=== PATIENT | male | born 1965 | race American Indian/Alaskan Native ===

== ENCOUNTER 2016-12-22 12:44 | Outpatient (CLI) | payer MEDICARE ==
--- NOTE | 2016-12-22 14:14 | Cat Scan Report ---
CT of the abdomen and pelvis without contrast. History: Urinary incontinence. Findings: The liver, spleen, and pancreas are normal. The gallbladder is unremarkable. There is a round hypodense mass in the upper pole of the right kidney measuring 2.8 cm in diameter with CT numbers consistent with water density. There are no other renal abnormalities. There is no hydronephrosis. The adrenal glands appear normal. There are no pelvic masses or abnormal fluid collections. A 4 mm calcification adjacent to the posterior left lateral aspect of the urinary bladder appears to be vascular in origin with no evidence of ureteral dilatation. No significant bony findings are seen. The prostate gland is mildly prominent. Impression: #1. Right renal cyst. 2. Left lower pelvis soft tissue calcification appears to be outside the ureter. 3. Mild prostatic enlargement.
== END 2016-12-22 12:45 | disposition home or self-care (01) ==
LOC: CT 12:44
PROVIDERS: ATTEND Urology
DX: N28.1 Cyst of kidney, acquired (principal); N40.1 Benign prostatic hyperplasia with lower urinary tract symptoms; N28.89 Other specified disorders of kidney and ureter; N39.498 Other specified urinary incontinence
CPT/HCPCS: 74176

== ENCOUNTER 2019-02-06 09:05 | Emergency (ER) | payer MEDICARE ==
--- NOTE | 2019-02-06 09:46 | Cat Scan Report ---
CT HEAD WITHOUT CONTRAST: HISTORY: Altered mental status. TECHNIQUE: Sequential 2.5mm CT images. COMPARISON: none. FINDINGS: Cerebral Parenchyma: A large chronic infarct measuring up to 10.1 x 3.7 cm in axial dimensions is identified in the right MCA distribution. The infarct in involves the right frontal lobe, anterior right parietal lobe and anterior temporal lobe. The remaining brain parenchyma is within normal limits for this persons age. No acute ischemic insult is appreciated on noncontrast CT. Cerebellum: Within normal limits. Brainstem: Within normal limits. Ventricles: Normal. Sella: Normal. Extra-axial spaces: Normal. Basal Cisterns: Normal. Intracranial Hemorrhage: None. Midline Shift: None. Calvarium: Normal. Sinuses: Normal. Mastoid Air Cells: Normal. Visualized Orbits: Normal. IMPRESSION: Chronic right MCA infarct. No acute intracranial process is identified.
[2019-02-06 10:00] LABS: Basophils % (Auto) 0.3 % (0.0-1.8); Eosinophils % (Auto) 0.1 % (0.0-4.3); Hematocrit 43.6 % (35.5-45.6); Hemoglobin 14.6 gm/dl (11.8-15.2); Lymphocytes # (Auto) 2.5 K/mm3 (1.2-5.4); Lymphocytes % (Auto) 22.8 % (13.4-35.0); Mean Corpuscular HGB Conc 33 % (32-34); Mean Corpuscular Volume 92 fl (84-94); Monocytes # (Auto) 0.8 K/mm3 (0.0-0.8); Monocytes % (Auto) 7.1 % (0.0-7.3); Platelet Count 145 K/mm3 (140-440); Red Blood Count 4.72 M/mm3 (3.65-5.03)
[2019-02-06 10:10] LABS: INR 1.28 (0.87-1.13)
[2019-02-06 10:11] LABS: Partial Thromboplastin Time 29.8 Sec. (24.2-36.6)
[2019-02-06 10:23] LABS: Thrombin Time 23.2 Sec. (15.1-19.6)
[2019-02-06 10:29] LABS: Creatine Kinase MB 2.8 ng/mL (0.0-4.0)
[2019-02-06 10:31] LABS: Alanine Aminotransferase 15 units/L (7-56); Albumin 3.8 g/dL (3.9-5); BUN/Creatinine Ratio 17; Blood Urea Nitrogen 12 mg/dL (9-20); Calcium 8.6 mg/dL (8.4-10.2); Hemolysis Index 15
[2019-02-06 10:32] LABS: Bilirubin,Direct < 0.2 mg/dL (0-0.2)
--- NOTE | 2019-02-06 10:42 | XRay Report ---
AP CHEST: HISTORY: Hypertension AP view of the chest demonstrates a normal mediastinal and cardiac contour with clear lungs and normal bony and soft tissue structures. IMPRESSION: Unremarkable AP chest.
[2019-02-06 11:10] LABS: RBC,Urine < 1.0 /HPF (0.0-6.0)
[2019-02-06 11:12] LABS: Bilirubin,Urine NEG (Negative); Blood,Urine MOD (Negative); Color,Urine Straw (Yellow); Protein,Urine <15 mg/dL mg/dL (Negative); Urobilinogen,Urine < 2.0 mg/dL (<2.0)
[2019-02-06 11:22] LABS: Amphetamine Screen,Urine PRESUMPTIVE NEGATIVE; Benzodiazepines Screen,Urine PRESUMPTIVE NEGATIVE; Cannabinoid Screen,Urine PRESUMPTIVE NEGATIVE; Cocaine Screen,Urine PRESUMPTIVE NEGATIVE; Methadone Screen,Urine PRESUMPTIVE NEGATIVE; Opiate Screen,Urine PRESUMPTIVE NEGATIVE
--- NOTE | 2019-02-06 12:44 | Emergency Department Report ---
ED Altered Mental Status HPI - General Chief Complaint: Altered Mental Status Stated Complaint: NEURO ISSUES Time Seen by Provider: 02/06/19 09:27 Source: patient, EMS Mode of arrival: Stretcher Limitations: Physical Limitation - History of Present Illness Initial Comments: This is a 53 year old man who presents with 2 older lady said she'll kindly both state that they are his mother. They tell me that he had some abnormal behavior this morning. The behavior consisted of walking around in circles at home. The patient is status post previous CVA with left hemiparesis. He does walk with assistive devices including a leg brace and a cane. In addition to being status post an MCA stroke about a year ago, the patient is prescribed Seroquel. The family do not admit any specific psychiatric diagnosis. However they do state that he was placed on this medicine for his "behavior" in the past. The patient has had no history of abdullahi hallucinosis. They deny any of that today or paranoid ideation. He did not wander out of his home. MD Complaint: altered mental status -: hour(s) Consistency of Symptoms: waxing and waning (basically resolved after the episode this morning) Context: other (prior CVA) Associated Symptoms: denies other symptoms - Related Data Previous Rx's Medication Instructions Recorded Last Taken Type Aspirin [Aspirin BABY CHEW TAB] 81 mg PO QDAY #30 tab.chew 06/10/15 Unknown Rx DULoxetine [Cymbalta] 60 mg PO QDAY #30 capsule 06/10/15 Unknown Rx Metoprolol [Lopressor TAB] 25 mg PO BID@0800,2200 #60 tablet 06/10/15 Unknown Rx Nicotine [Habitrol] 14 mg TD QDAY #30 patch 06/10/15 Unknown Rx levETIRAcetam [Keppra TAB] 500 mg PO BID@0800,2200 #60 tablet 06/10/15 Unknown Rx traZODone [Desyrel] 25 mg PO QHS PRN #30 tablet 06/10/15 Unknown Rx Allergies Allergy/AdvReac Type Severity Reaction Status Date / Time No Known Allergies Allergy Verified 04/26/15 21:27 ED Review of Systems ROS: Stated complaint: NEURO ISSUES Other details as noted in HPI Constitutional: denies: chills, fever Eyes: denies: eye pain, eye discharge, vision change ENT: denies: ear pain, throat pain Respiratory: denies: cough, shortness of breath, wheezing Cardiovascular: denies: chest pain, palpitations Endocrine: no symptoms reported Gastrointestinal: denies: abdominal pain, nausea, diarrhea Genitourinary: denies: urgency, dysuria Musculoskeletal: denies: back pain, joint swelling, arthralgia Skin: denies: rash, lesions Neurological: confusion (perhaps but appears to be behavioral disorder), abnorm al gait (no change from prior). denies: headache, weakness, numbness, paresthesias Psychiatric: as per HPI. denies: anxiety, depression Hematological/Lymphatic: denies: easy bleeding, easy bruising ED Past Medical Hx - Past Medical History Previous Medical History?: Yes Hx Hypertension: Yes Hx CVA: Yes (residual left sided deficits) Hx Congestive Heart Failure: No Hx Diabetes: Yes Hx Deep Vein Thrombosis: No Hx Seizures: Yes Hx Kidney Stones: Yes Hx Asthma: Yes Hx COPD: No Hx Tuberculosis: No Hx HIV: No - Surgical History Hx Pacemaker: No Hx Internal Defibrillator: No - Social History Smoking Status: Current Some Day Smoker Substance Use Type: Alcohol - Medications Home Medications: Home Medications Medication Instructions Recorded Confirmed Last Taken Type Aspirin [Aspirin BABY CHEW TAB] 81 mg PO QDAY #30 tab.chew 06/10/15 Unknown Rx DULoxetine [Cymbalta] 60 mg PO QDAY #30 capsule 06/10/15 Unknown Rx Metoprolol [Lopressor TAB] 25 mg PO BID@0800,2200 #60 tablet 06/10/15 Unknown Rx Nicotine [Habitrol] 14 mg TD QDAY #30 patch 06/10/15 Unknown Rx levETIRAcetam [Keppra TAB] 500 mg PO BID@0800,2200 #60 tablet 06/10/15 Unknown Rx traZODone [Desyrel] 25 mg PO QHS PRN #30 tablet 06/10/15 Unknown Rx ED Physical Exam - General Limitations: Physical Limitation General appearance: alert, in no apparent distress - Head Head exam: Present: atraumatic, normocephalic - Eye Eye exam: Present: normal appearance. Absent: scleral icterus - ENT ENT exam: Present: mucous membranes moist - Neck Neck exam: Present: normal inspection. Absent: tenderness, meningismus - Respiratory Respiratory exam: Present: normal lung sounds bilaterally. Absent: respiratory distress - Cardiovascular Cardiovascular Exam: Present: regular rate, normal rhythm. Absent: systolic murmur, diastolic murmur, rubs, gallop - GI/Abdominal GI/Abdominal exam: Present: soft, normal bowel sounds. Absent: distended, tenderness, guarding, rebound, rigid - Rectal Rectal exam: Present: deferred - Extremities Exam Extremities exam: Present: other (contraction left upper extremity) - Back Exam Back exam: Present: normal inspection - Neurological Exam Neurological exam: Present: alert, oriented X3, CN II-XII intact (perhaps trace left facial paresis), motor sensory deficit (left hemiparesthesias) - Psychiatric Psychiatric exam: Present: normal affect, normal mood - Skin Skin exam: Present: warm, dry, intact, normal color. Absent: rash - Assessment Assessment Interval: Baseline - Level of Consciousness 1a. Level of Consciousness: alert/keenly responsive - LOC Questions 1b. LOC Questions: answers both correctly - LOC Command 1c. LOC Commands: performs tasks correctly - Best Gaze 2. Best Gaze: normal - Visual 3. Visual: no visual loss - Facial Palsy 4. Facial Palsy: minor paralysis (Plus or minus) - Motor Arm 5a. Motor Arm Left: no gravity effort 5b. Motor Arm Right: no drift - Motor Leg 6a. Motor Leg Left: drift 6b. Motor Leg Right: no drift - Limb Ataxia 7. Limb Ataxia: absent - Sensory 8. Sensory: normal - Best Language 9. Best Language: no aphasia - Dysarthria 10. Dysarthria: mild/moderate dysarthria (Very slight) - Extinction and Inattention 11. Extinction/Inattention: no abnormality - Scoring Total Score: 6 Stroke Severity: Moderate Stroke ED Course Vital Signs 02/06/19 02/06/19 02/06/19 09:16 10:30 12:00 Temperature 98 F 98.5 F Pulse Rate 64 66 60 Respiratory 16 16 16 Rate Blood Pressure 103/69 Blood Pressure 102/78 [Right] O2 Sat by Pulse 96 100 100 Oximetry - Reevaluation(s) Reevaluation #1: The patient has not changed from his neurological baseline. He is not altered at this time. He states he is hungry and will be fed. I don't find any indication for admission to the hospital. 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 He will be referred to a neurologist. He may benefit from psychiatric evaluation as well. He is appropriate for outpatient disposition. 02/06/19 13:23 - Lab Data Result diagrams: 02/06/19 09:43 02/06/19 09:43 Lab Results 02/06/19 02/06/19 02/06/19 Range/Units 09:16 09:43 09:43 WBC 10.7 (4.5-11.0) K/mm3 RBC 4.72 (3.65-5.03) M/mm3 Hgb 14.6 (11.8-15.2) gm/dl Hct 43.6 (35.5-45.6) % MCV 92 (84-94) fl MCH 31 (28-32) pg MCHC 33 (32-34) % RDW 14.0 (13.2-15.2) % Plt Count 145 (140-440) K/mm3 Lymph % (Auto) 22.8 (13.4-35.0) % [place] % (Auto) 7.1 (0.0-7.3) % Eos % (Auto) 0.1 (0.0-4.3) % Baso % (Auto) 0.3 (0.0-1.8) % Lymph # 2.5 (1.2-5.4) K/mm3 [place] # 0.8 (0.0-0.8) K/mm3 Eos # 0.0 (0.0-0.4) K/mm3 Baso # 0.0 (0.0-0.1) K/mm3 Seg Neutrophils % 69.7 (40.0-70.0) % Seg Neutrophils # 7.5 (1.8-7.7) K/mm3 PT 16.8 H (12.2-14.9) Sec. INR 1.28 H (0.87-1.13) APTT 29.8 (24.2-36.6) Sec. Thrombin Time 23.2 H (15.1-19.6) Sec. Sodium (137-145) mmol/L Potassium (3.6-5.0) mmol/L Chloride (98-107) mmol/L Carbon Dioxide (22-30) mmol/L Anion Gap mmol/L BUN (9-20) mg/dL Creatinine (0.8-1.5) mg/dL Estimated GFR ml/min BUN/Creatinine Ratio % Glucose (75-100) mg/dL POC Glucose 100 (70-105) Calcium (8.4-10.2) mg/dL Total Bilirubin (0.1-1.2) mg/dL Direct Bilirubin (0-0.2) mg/dL Indirect Bilirubin mg/dL AST (5-40) units/L ALT (7-56) units/L Alkaline Phosphatase (35-129) units/L Total Creatine Kinase (55-170) units/L CK-MB (CK-2) (0.0-4.0) ng/mL CK-MB (CK-2) Rel Index (0-4) Troponin T (0.00-0.029) ng/mL NT-Pro-B Natriuret Pep (0-900) pg/mL Total Protein (6.3-8.2) g/dL Albumin (3.9-5) g/dL Albumin/Globulin Ratio % Urine Color (Yellow) Urine Turbidity (Clear) Urine pH (5.0-7.0) Ur Specific [place] (1.003-1.030) Urine Protein (Negative) mg/dL Urine Glucose (UA) (Negative) mg/dL Urine Ketones (Negative) mg/dL Urine Blood (Negative) Urine Nitrite (Negative) Ur Reducing Substances Urine Bilirubin (Negative) Urine Ictotest Urine Urobilinogen (<2.0) mg/dL Ur Leukocyte Esterase (Negative) Urine WBC (Auto) (0.0-6.0) /HPF Urine RBC (Auto) (0.0-6.0) /HPF Urine Opiates Screen Urine Methadone Screen Ur Barbiturates Screen Ur Phencyclidine Scrn Ur Amphetamines Screen U Benzodiazepines Scrn Urine Cocaine Screen U Marijuana (THC) Screen Drugs of Abuse Note Plasma/Serum Alcohol (0-0.07) % 02/06/19 02/06/19 02/06/19 Range/Units 09:43 09:43 10:22 WBC (4.5-11.0) K/mm3 RBC (3.65-5.03) M/mm3 Hgb (11.8-15.2) gm/dl Hct (35.5-45.6) % MCV (84-94) fl MCH (28-32) pg MCHC (32-34) % RDW (13.2-15.2) % Plt Count (140-440) K/mm3 Lymph % (Auto) (13.4-35.0) % [place] % (Auto) (0.0-7.3) % Eos % (Auto) (0.0-4.3) % Baso % (Auto) (0.0-1.8) % Lymph # (1.2-5.4) K/mm3 [place] # (0.0-0.8) K/mm3 Eos # (0.0-0.4) K/mm3 Baso # (0.0-0.1) K/mm3 Seg Neutrophils % (40.0-70.0) % Seg Neutrophils # (1.8-7.7) K/mm3 PT (12.2-14.9) Sec. INR (0.87-1.13) APTT (24.2-36.6) Sec. Thrombin Time (15.1-19.6) Sec. Sodium 135 L (137-145) mmol/L Potassium 3.9 (3.6-5.0) mmol/L Chloride 101.7 (98-107) mmol/L Carbon Dioxide 22 (22-30) mmol/L Anion Gap 15 mmol/L BUN 12 (9-20) mg/dL Creatinine 0.7 L (0.8-1.5) mg/dL Estimated GFR > 60 ml/min BUN/Creatinine Ratio 17 % Glucose 117 H (75-100) mg/dL POC Glucose (70-105) Calcium 8.6 (8.4-10.2) mg/dL Total Bilirubin 0.30 (0.1-1.2) mg/dL Direct Bilirubin < 0.2 (0-0.2) mg/dL Indirect Bilirubin 0.1 mg/dL AST 17 (5-40) units/L ALT 15 (7-56) units/L Alkaline Phosphatase 81 (35-129) units/L Total Creatine Kinase 164 (55-170) units/L CK-MB (CK-2) 2.8 (0.0-4.0) ng/mL CK-MB (CK-2) Rel Index 1.7 (0-4) Troponin T < 0.010 (0.00-0.029) ng/mL NT-Pro-B Natriuret Pep 210.7 (0-900) pg/mL Total Protein 6.9 (6.3-8.2) g/dL Albumin 3.8 L (3.9-5) g/dL Albumin/Globulin Ratio 1.2 % Urine Color Straw (Yellow) Urine Turbidity Clear (Clear) Urine pH 6.0 (5.0-7.0) Ur Specific [place] 1.006 (1.003-1.030) Urine Protein <15 mg/dl (Negative) mg/dL Urine Glucose (UA) Neg (Negative) mg/dL Urine Ketones Neg (Negative) mg/dL Urine Blood Mod (Negative) Urine Nitrite Neg (Negative) Ur Reducing Substances Not Reportable Urine Bilirubin Neg (Negative) Urine Ictotest Not Reportable Urine Urobilinogen < 2.0 (<2.0) mg/dL Ur Leukocyte Esterase Neg (Negative) Urine WBC (Auto) 1.0 (0.0-6.0) /HPF Urine RBC (Auto) < 1.0 (0.0-6.0) /HPF Urine Opiates Screen Urine Methadone Screen Ur Barbiturates Screen Ur Phencyclidine Scrn Ur Amphetamines Screen U Benzodiazepines Scrn Urine Cocaine Screen U Marijuana (THC) Screen Drugs of Abuse Note Plasma/Serum Alcohol < 0.01 (0-0.07) % 02/06/19 Range/Units 10:22 WBC (4.5-11.0) K/mm3 RBC (3.65-5.03) M/mm3 Hgb (11.8-15.2) gm/dl Hct (35.5-45.6) % MCV (84-94) fl MCH (28-32) pg MCHC (32-34) % RDW (13.2-15.2) % Plt Count (140-440) K/mm3 Lymph % (Auto) (13.4-35.0) % [place] % (Auto) (0.0-7.3) % Eos % (Auto) (0.0-4.3) % Baso % (Auto) (0.0-1.8) % Lymph # (1.2-5.4) K/mm3 [place] # (0.0-0.8) K/mm3 Eos # (0.0-0.4) K/mm3 Baso # (0.0-0.1) K/mm3 Seg Neutrophils % (40.0-70.0) % Seg Neutrophils # (1.8-7.7) K/mm3 PT (12.2-14.9) Sec. INR (0.87-1.13) APTT (24.2-36.6) Sec. Thrombin Time (15.1-19.6) Sec. Sodium (137-145) mmol/L Potassium (3.6-5.0) mmol/L Chloride (98-107) mmol/L Carbon Dioxide (22-30) mmol/L Anion Gap mmol/L BUN (9-20) mg/dL Creatinine (0.8-1.5) mg/dL Estimated GFR ml/min BUN/Creatinine Ratio % Glucose (75-100) mg/dL POC Glucose (70-105) Calcium (8.4-10.2) mg/dL Total Bilirubin (0.1-1.2) mg/dL Direct Bilirubin (0-0.2) mg/dL Indirect Bilirubin mg/dL AST (5-40) units/L ALT (7-56) units/L Alkaline Phosphatase (35-129) units/L Total Creatine Kinase (55-170) units/L CK-MB (CK-2) (0.0-4.0) ng/mL CK-MB (CK-2) Rel Index (0-4) Troponin T (0.00-0.029) ng/mL NT-Pro-B Natriuret Pep (0-900) pg/mL Total Protein (6.3-8.2) g/dL Albumin (3.9-5) g/dL Albumin/Globulin Ratio % Urine Color (Yellow) Urine Turbidity (Clear) Urine pH (5.0-7.0) Ur Specific [place] (1.003-1.030) Urine Protein (Negative) mg/dL Urine Glucose (UA) (Negative) mg/dL Urine Ketones (Negative) mg/dL Urine Blood (Negative) Urine Nitrite (Negative) Ur Reducing Substances Urine Bilirubin (Negative) Urine Ictotest Urine Urobilinogen (<2.0) mg/dL Ur Leukocyte Esterase (Negative) Urine WBC (Auto) (0.0-6.0) /HPF Urine RBC (Auto) (0.0-6.0) /HPF Urine Opiates Screen Presumptive negative Urine Methadone Screen Presumptive negative Ur Barbiturates Screen Presumptive negative Ur Phencyclidine Scrn Presumptive negative Ur Amphetamines Screen Presumptive negative U Benzodiazepines Scrn Presumptive negative Urine Cocaine Screen Presumptive negative U Marijuana (THC) Screen Presumptive negative Drugs of Abuse Note Disclamer Plasma/Serum Alcohol (0-0.07) % Laboratory Results - last 24 hr 02/06/19 02/06/19 02/06/19 09:16 09:43 09:43 WBC 10.7 RBC 4.72 Hgb 14.6 Hct 43.6 MCV 92 MCH 31 MCHC 33 RDW 14.0 Plt Count 145 Lymph % (Auto) 22.8 [place] % (Auto) 7.1 Eos % (Auto) 0.1 Baso % (Auto) 0.3 Lymph # 2.5 [place] # 0.8 Eos # 0.0 Baso # 0.0 Seg Neutrophils % 69.7 Seg Neutrophils # 7.5 PT 16.8 H INR 1.28 H APTT 29.8 Thrombin Time 23.2 H Sodium Potassium Chloride Carbon Dioxide Anion Gap BUN Creatinine Estimated GFR BUN/Creatinine Ratio Glucose POC Glucose 100 Calcium Total Bilirubin Direct Bilirubin Indirect Bilirubin AST ALT Alkaline Phosphatase Total Creatine Kinase CK-MB (CK-2) CK-MB (CK-2) Rel Index Troponin T NT-Pro-B Natriuret Pep Total Protein Albumin Albumin/Globulin Ratio Urine Color Urine Turbidity Urine pH Ur Specific [place] Urine Protein Urine Glucose (UA) Urine Ketones Urine Blood Urine Nitrite Ur Reducing Substances Urine Bilirubin Urine Ictotest Urine Urobilinogen Ur Leukocyte Esterase Urine WBC (Auto) Urine RBC (Auto) Urine Opiates Screen Urine Methadone Screen Ur Barbiturates Screen Ur Phencyclidine Scrn Ur Amphetamines Screen U Benzodiazepines Scrn Urine Cocaine Screen U Marijuana (THC) Screen Drugs of Abuse Note Plasma/Serum Alcohol 02/06/19 02/06/19 02/06/19 09:43 09:43 10:22 WBC RBC Hgb Hct MCV MCH MCHC RDW Plt Count Lymph % (Auto) [place] % (Auto) Eos % (Auto) Baso % (Auto) Lymph # [place] # Eos # Baso # Seg Neutrophils % Seg Neutrophils # PT INR APTT Thrombin Time Sodium 135 L Potassium 3.9 Chloride 101.7 Carbon Dioxide 22 Anion Gap 15 BUN 12 Creatinine 0.7 L Estimated GFR > 60 BUN/Creatinine Ratio 17 Glucose 117 H POC Glucose Calcium 8.6 Total Bilirubin 0.30 Direct Bilirubin < 0.2 Indirect Bilirubin 0.1 AST 17 ALT 15 Alkaline Phosphatase 81 Total Creatine Kinase 164 CK-MB (CK-2) 2.8 CK-MB (CK-2) Rel Index 1.7 Troponin T < 0.010 NT-Pro-B Natriuret Pep 210.7 Total Protein 6.9 Albumin 3.8 L Albumin/Globulin Ratio 1.2 Urine Color Straw Urine Turbidity Clear Urine pH 6.0 Ur Specific [place] 1.006 Urine Protein <15 mg/dl Urine Glucose (UA) Neg Urine Ketones Neg Urine Blood Mod Urine Nitrite Neg Ur Reducing Substances Not Reportable Urine Bilirubin Neg Urine Ictotest Not Reportable Urine Urobilinogen < 2.0 Ur Leukocyte Esterase Neg Urine WBC (Auto) 1.0 Urine RBC (Auto) < 1.0 Urine Opiates Screen Urine Methadone Screen Ur Barbiturates Screen Ur Phencyclidine Scrn Ur Amphetamines Screen U Benzodiazepines Scrn Urine Cocaine Screen U Marijuana (THC) Screen Drugs of Abuse Note Plasma/Serum Alcohol < 0.01 02/06/19 10:22 WBC RBC Hgb Hct MCV MCH MCHC RDW Plt Count Lymph % (Auto) [place] % (Auto) Eos % (Auto) Baso % (Auto) Lymph # [place] # Eos # Baso # Seg Neutrophils % Seg Neutrophils # PT INR APTT Thrombin Time Sodium Potassium Chloride Carbon Dioxide Anion Gap BUN Creatinine Estimated GFR BUN/Creatinine Ratio Glucose POC Glucose Calcium Total Bilirubin Direct Bilirubin Indirect Bilirubin AST ALT Alkaline Phosphatase Total Creatine Kinase CK-MB (CK-2) CK-MB (CK-2) Rel Index Troponin T NT-Pro-B Natriuret Pep Total Protein Albumin Albumin/Globulin Ratio Urine Color Urine Turbidity Urine pH Ur Specific [place] Urine Protein Urine Glucose (UA) Urine Ketones Urine Blood Urine Nitrite Ur Reducing Substances Urine Bilirubin Urine Ictotest Urine Urobilinogen Ur Leukocyte Esterase Urine WBC (Auto) Urine RBC (Auto) Urine Opiates Screen Presumptive negative Urine Methadone Screen Presumptive negative Ur Barbiturates Screen Presumptive negative Ur Phencyclidine Scrn Presumptive negative Ur Amphetamines Screen Presumptive negative U Benzodiazepines Scrn Presumptive negative Urine Cocaine Screen Presumptive negative U Marijuana (THC) Screen Presumptive negative Drugs of Abuse Note Disclamer Plasma/Serum Alcohol - EKG Data -: EKG Interpreted by Ca EKG shows normal: sinus rhythm, axis, intervals, QRS complexes, ST-T waves Rate: normal Interpretation: normal EKG - Radiology Data Radiology results: report reviewed (no acute process) Critical care attestation.: If time is entered above; I have spent that time in minutes in the direct care of this critically ill patient, excluding procedure time. ED Disposition Clinical Impression: CVA, old, hemiparesis Altered mental status Qualifiers: Altered mental status type: transient alteration of awareness Qualified Code(s): R40.4 - Transient alteration of awareness Disposition: DC-01 TO HOME OR SELFCARE Is pt being admited?: No Does the pt Need Aspirin: No Condition: Stable Instructions: Altered Mental Status (ED) Additional Instructions: The patient would benefit from a neurological evaluation of that as an outpatient. I don't think he would benefit from admission to the hospital at this time. He may also benefit from psychiatric evaluation. See her primary care physician for further management in general. I have listed a neurologist as a possible referral. You may have to check with your insurance carrier. Referrals: PRIMARY CARE, [Referring] - 3-5 Days MAITE MURDOCK MD [Staff Physician] - 2-3 Days Time of Disposition: 13:28
[2019-02-06 16:29] VITALS: BP 117/64
== END 2019-02-06 16:29 | disposition home or self-care (01) ==
LOC: ED 09:05
DX: R40.4 Transient alteration of awareness (principal); G81.90 Hemiplegia, unspecified affecting unspecified side; I63.9 Cerebral infarction, unspecified; I10 Essential (primary) hypertension; I25.2 Old myocardial infarction; E11.9 Type 2 diabetes mellitus without complications; J45.909 Unspecified asthma, uncomplicated; F17.200 Nicotine dependence, unspecified, uncomplicated; Z79.899 Other long term (current) drug therapy
CPT/HCPCS: 36415; 70450; 71045; 80048; 80076; 80307; 81001; 82550; 82553; 82962; 83880; 84484; 85025; 85610; 85670; 85730; 93005; 93010; 99285; G0480; 80320

== ENCOUNTER 2019-02-09 08:28 | Inpatient (IN) | payer MEDICARE ==
--- NOTE | 2019-02-09 08:50 | Cat Scan Report ---
CT HEAD WITHOUT CONTRAST: HISTORY: Neurological deficit, stroke. TECHNIQUE: Sequential 2.5mm CT images. COMPARISON: 02/06/19. FINDINGS: Cerebral Parenchyma: The large chronic MCA infarct is again noted. The remaining brain parenchyma remains unremarkable. No new areas of diminished attenuation to suggest acute ischemia are identified. Cerebellum: Within normal limits. Brainstem: Within normal limits. Ventricles: Normal. Sella: Normal. Extra-axial spaces: Normal. Basal Cisterns: Normal. Intracranial Hemorrhage: None. Midline Shift: None. Calvarium: Normal. Sinuses: Normal. Mastoid Air Cells: Normal. Visualized Orbits: Normal. IMPRESSION: No acute intracranial process. Large chronic right MCA infarct. No change since the exam 3 days ago. These findings were discussed with Dr. Thakkar in the emergency department at 0841 hours.
[2019-02-09] MEDS ORDERED: KEPPRA 1,000 MG/NS 0.75% 100ML 1,000 MG/100 ML BAG IV ONE (08:51)
--- NOTE | 2019-02-09 08:51 | Emergency Department Report ---
ED Neuro Deficit HPI - General Stated Complaint: POSS CVA Time Seen by Provider: 02/09/19 08:35 - History of Present Illness Initial Comments: 3-year-old male who arrives as a code stroke. However, his symptoms are of several hours versus days onset. The information I currently have is that the patient fell while walking out of a store yesterday at 1 PM injuring his face. He states that he did a "face plant". He states that he might have had a short "seizure". 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 He presents to the emergency department a left hemiparesis which may have worsened over the past 1-2 days. He was found by paramedics sitting in a chair at home. The patient is a bit aphasic I believe. He states he was here in this emergency room yesterday which is inaccurate. He was actually seen a few days ago for alteration of behavior with essentially negative workup for acute findings. -: Sudden Location: left arm, left leg Presenting Symptoms: Present: Weak/Paralyzed One Side History of same: Yes Place: other Severity: severe Quality: weak Improves With: none Worsens With: none On Anticoagulants: No Context: other (uncertain) Associated Symptoms: denies other symptoms, other (hit face) - Related Data Home Medications: Previous Rx's Medication Instructions Recorded Last Taken Type Aspirin [Aspirin BABY CHEW TAB] 81 mg PO QDAY #30 tab.chew 06/10/15 Unknown Rx DULoxetine [Cymbalta] 60 mg PO QDAY #30 capsule 06/10/15 Unknown Rx Metoprolol [Lopressor TAB] 25 mg PO BID@0800,2200 #60 tablet 06/10/15 Unknown Rx Nicotine [Habitrol] 14 mg TD QDAY #30 patch 06/10/15 Unknown Rx levETIRAcetam [Keppra TAB] 500 mg PO BID@0800,2200 #60 tablet 06/10/15 Unknown Rx traZODone [Desyrel] 25 mg PO QHS PRN #30 tablet 06/10/15 Unknown Rx Allergies/Adverse Reactions: Allergies Allergy/AdvReac Type Severity Reaction Status Date / Time No Known Allergies Allergy Verified 04/26/15 21:27 ED Review of Systems ROS: Stated complaint: POSS CVA Other details as noted in HPI Constitutional: fever (thinks might have had a fever). denies: chills Eyes: denies: eye pain, eye discharge, vision change ENT: denies: ear pain, throat pain Respiratory: denies: cough, shortness of breath, wheezing Cardiovascular: denies: chest pain, palpitations Endocrine: no symptoms reported Gastrointestinal: denies: abdominal pain, nausea, diarrhea Genitourinary: denies: urgency, dysuria Musculoskeletal: denies: back pain, joint swelling, arthralgia Skin: denies: rash, lesions Neurological: denies: headache, weakness, paresthesias Psychiatric: denies: anxiety, depression Hematological/Lymphatic: denies: easy bleeding, easy bruising ED Past Medical Hx - Past Medical History Hx Hypertension: Yes Hx CVA: Yes (residual left sided deficits) Hx Congestive Heart Failure: No Hx Diabetes: Yes Hx Deep Vein Thrombosis: No Hx Seizures: Yes Hx Kidney Stones: Yes Hx Asthma: Yes Hx COPD: No Hx Tuberculosis: No Hx HIV: No - Surgical History Hx Pacemaker: No Hx Internal Defibrillator: No - Social History Smoking Status: Current Some Day Smoker Substance Use Type: Alcohol - Medications Home Medications: Home Medications Medication Instructions Recorded Confirmed Last Taken Type Aspirin [Aspirin BABY CHEW TAB] 81 mg PO QDAY #30 tab.chew 06/10/15 02/09/19 Unknown Rx DULoxetine [Cymbalta] 60 mg PO QDAY #30 capsule 06/10/15 02/09/19 Unknown Rx Metoprolol [Lopressor TAB] 25 mg PO BID@0800,2200 #60 tablet 06/10/15 02/09/19 Unknown Rx Nicotine [Habitrol] 14 mg TD QDAY #30 patch 06/10/15 02/09/19 Unknown Rx levETIRAcetam [Keppra TAB] 500 mg PO BID@0800,2200 #60 tablet 06/10/15 02/09/19 Unknown Rx traZODone [Desyrel] 25 mg PO QHS PRN #30 tablet 06/10/15 02/09/19 Unknown Rx ED Neuro Physical Exam - General General appearance: alert, in no apparent distress Suspected Stroke: Yes (versus Manuel's paresis) - Head Head exam: Present: atraumatic, normocephalic - Eye Eye exam: Present: normal appearance - ENT ENT exam: Present: mucous membranes moist, other (nasal abrasion and soft tissue swelling left malar area no deformity) - Neck Neck exam: Present: normal inspection - Respiratory Respiratory exam: Present: normal lung sounds bilaterally. Absent: respiratory distress - Cardiovascular Cardiovascular Exam: Present: regular rate, normal rhythm. Absent: systolic murmur, diastolic murmur, rubs, gallop - GI/Abdominal GI/Abdominal exam: Present: soft, normal bowel sounds. Absent: distended, tenderness, guarding, rebound, rigid - Rectal Rectal exam: Present: deferred - Extremities Exam Extremities exam: Present: normal inspection - Back Exam Back exam: Present: normal inspection - Neurological Exam Neurological exam: Present: alert, oriented X3, motor sensory deficit. Absent: CN II-XII intact - NIHSS Assessment Interval: Baseline 1a. Level of Consciousness: arousable/minor stimuli 1b. LOC Questions: answers both correctly 1c. LOC Commands: performs tasks correctly 2. Best Gaze: normal 3. Visual: no visual loss 4. Facial Palsy: minor paralysis 5b. Motor Arm Right: no drift 5a. Motor Arm Left: no gravity effort 6a. Motor Leg Left: no gravity effort 6b. Motor Leg Right: no drift 7. Limb Ataxia: absent 8. Sensory: normal 9. Best Language: mild/moderate aphasia 10. Dysarthria: normal 11. Extinction/Inattention: visual/tactile inattention Total Score: 10 Stroke Severity: Moderate Stroke - Psychiatric Psychiatric exam: Present: normal affect, normal mood - Skin Skin exam: Present: warm, dry, intact, normal color. Absent: rash ED Course Vital Signs 02/09/19 02/09/19 02/09/19 08:55 09:59 10:01 Temperature 98.8 F 98.8 F Pulse Rate 68 70 Respiratory 16 16 16 Rate Blood Pressure 114/79 Blood Pressure 123/76 [Left] Blood Pressure [Right] O2 Sat by Pulse 98 97 Oximetry 02/09/19 02/09/19 02/09/19 10:30 11:10 11:15 Temperature Pulse Rate 72 81 73 Respiratory 16 14 16 Rate Blood Pressure Blood Pressure 113/71 110/81 [Left] Blood Pressure 110/73 [Right] O2 Sat by Pulse 97 97 97 Oximetry - Reevaluation(s) Reevaluation #1: Patient thought he had had a seizure. This raises the likelihood of a Manuel's paresis. On reexamination patient's stroke score was considerably improved. He essentially is at about a 4 as compared to approximately 10 at the door on an NIH stroke score. I believe this makes the likelihood of Manuel's paresis substantially greater. He was given Keppra. I spoke to the telemetry neurologist. It was her impression as well and independently that patient had had a seizure and likely Manuel's. With my reexamination of the patient I think this is entirely likely. His CT did not show anything acute. The patella neurologist did not recommend any acute testing. I think perhaps the patient should be observed for possible alcohol withdrawal as well. He does not report any consistent drinking however. 02/09/19 09:33 Reevaluation #2: Discussed with hospitalist. Placed MR studies for them. Patient has been admitted. 02/09/19 12:10 - Lab Data Result diagrams: 02/09/19 08:46 02/09/19 08:46 Lab Results 02/09/19 02/09/19 02/09/19 Range/Units 08:46 08:46 08:46 WBC 9.0 (4.5-11.0) K/mm3 RBC 4.81 (3.65-5.03) M/mm3 Hgb 14.8 (11.8-15.2) gm/dl Hct 44.3 (35.5-45.6) % MCV 92 (84-94) fl MCH 31 (28-32) pg MCHC 34 (32-34) % RDW 13.6 (13.2-15.2) % Plt Count 157 (140-440) K/mm3 Lymph % (Auto) 22.1 (13.4-35.0) % Trimble % (Auto) 8.4 H (0.0-7.3) % Eos % (Auto) 0.7 (0.0-4.3) % Baso % (Auto) 0.6 (0.0-1.8) % Lymph # 2.0 (1.2-5.4) K/mm3 Trimble # 0.8 (0.0-0.8) K/mm3 Eos # 0.1 (0.0-0.4) K/mm3 Baso # 0.1 (0.0-0.1) K/mm3 Seg Neutrophils % 68.2 (40.0-70.0) % Seg Neutrophils # 6.1 (1.8-7.7) K/mm3 PT 13.7 (12.2-14.9) Sec. INR 0.99 (0.87-1.13) APTT 26.1 (24.2-36.6) Sec. Thrombin Time (15.1-19.6) Sec. Sodium 139 (137-145) mmol/L Potassium 3.4 L (3.6-5.0) mmol/L Chloride 102.5 (98-107) mmol/L Carbon Dioxide 25 (22-30) mmol/L Anion Gap 15 mmol/L BUN 10 (9-20) mg/dL Creatinine 0.9 (0.8-1.5) mg/dL Estimated GFR > 60 ml/min BUN/Creatinine Ratio 11 % Glucose 104 H (75-100) mg/dL Lactic Acid (0.7-2.0) mmol/L Calcium 8.8 (8.4-10.2) mg/dL Magnesium (1.7-2.3) mg/dL Total Bilirubin (0.1-1.2) mg/dL Direct Bilirubin (0-0.2) mg/dL Indirect Bilirubin mg/dL AST (5-40) units/L ALT (7-56) units/L Alkaline Phosphatase (35-129) units/L Total Creatine Kinase (55-170) units/L CK-MB (CK-2) (0.0-4.0) ng/mL CK-MB (CK-2) Rel Index (0-4) Troponin T < 0.010 (0.00-0.029) ng/mL NT-Pro-B Natriuret Pep (0-900) pg/mL Total Protein (6.3-8.2) g/dL Albumin (3.9-5) g/dL Albumin/Globulin Ratio % Plasma/Serum Alcohol (0-0.07) % 02/09/19 02/09/19 02/09/19 Range/Units 08:46 08:46 08:46 WBC (4.5-11.0) K/mm3 RBC (3.65-5.03) M/mm3 Hgb (11.8-15.2) gm/dl Hct (35.5-45.6) % MCV (84-94) fl MCH (28-32) pg MCHC (32-34) % RDW (13.2-15.2) % Plt Count (140-440) K/mm3 Lymph % (Auto) (13.4-35.0) % Trimble % (Auto) (0.0-7.3) % Eos % (Auto) (0.0-4.3) % Baso % (Auto) (0.0-1.8) % Lymph # (1.2-5.4) K/mm3 Trimble # (0.0-0.8) K/mm3 Eos # (0.0-0.4) K/mm3 Baso # (0.0-0.1) K/mm3 Seg Neutrophils % (40.0-70.0) % Seg Neutrophils # (1.8-7.7) K/mm3 PT (12.2-14.9) Sec. INR (0.87-1.13) APTT (24.2-36.6) Sec. Thrombin Time 24.2 H (15.1-19.6) Sec. Sodium (137-145) mmol/L Potassium (3.6-5.0) mmol/L Chloride (98-107) mmol/L Carbon Dioxide (22-30) mmol/L Anion Gap mmol/L BUN (9-20) mg/dL Creatinine (0.8-1.5) mg/dL Estimated GFR ml/min BUN/Creatinine Ratio % Glucose (75-100) mg/dL Lactic Acid (0.7-2.0) mmol/L Calcium (8.4-10.2) mg/dL Magnesium (1.7-2.3) mg/dL Total Bilirubin (0.1-1.2) mg/dL Direct Bilirubin (0-0.2) mg/dL Indirect Bilirubin mg/dL AST (5-40) units/L ALT (7-56) units/L Alkaline Phosphatase (35-129) units/L Total Creatine Kinase 628 H (55-170) units/L CK-MB (CK-2) 6.0 H (0.0-4.0) ng/mL CK-MB (CK-2) Rel Index 0.9 (0-4) Troponin T (0.00-0.029) ng/mL NT-Pro-B Natriuret Pep (0-900) pg/mL Total Protein (6.3-8.2) g/dL Albumin (3.9-5) g/dL Albumin/Globulin Ratio % Plasma/Serum Alcohol < 0.01 (0-0.07) % 02/09/19 02/09/19 Range/Units 08:46 08:46 WBC (4.5-11.0) K/mm3 RBC (3.65-5.03) M/mm3 Hgb (11.8-15.2) gm/dl Hct (35.5-45.6) % MCV (84-94) fl MCH (28-32) pg MCHC (32-34) % RDW (13.2-15.2) % Plt Count (140-440) K/mm3 Lymph % (Auto) (13.4-35.0) % Trimble % (Auto) (0.0-7.3) % Eos % (Auto) (0.0-4.3) % Baso % (Auto) (0.0-1.8) % Lymph # (1.2-5.4) K/mm3 Trimble # (0.0-0.8) K/mm3 Eos # (0.0-0.4) K/mm3 Baso # (0.0-0.1) K/mm3 Seg Neutrophils % (40.0-70.0) % Seg Neutrophils # (1.8-7.7) K/mm3 PT (12.2-14.9) Sec. INR (0.87-1.13) APTT (24.2-36.6) Sec. Thrombin Time (15.1-19.6) Sec. Sodium (137-145) mmol/L Potassium (3.6-5.0) mmol/L Chloride (98-107) mmol/L Carbon Dioxide (22-30) mmol/L Anion Gap mmol/L BUN (9-20) mg/dL Creatinine (0.8-1.5) mg/dL Estimated GFR ml/min BUN/Creatinine Ratio % Glucose (75-100) mg/dL Lactic Acid 1.60 (0.7-2.0) mmol/L Calcium (8.4-10.2) mg/dL Magnesium 2.10 (1.7-2.3) mg/dL Total Bilirubin 0.20 (0.1-1.2) mg/dL Direct Bilirubin < 0.2 (0-0.2) mg/dL Indirect Bilirubin 0.0 mg/dL AST 23 (5-40) units/L ALT 15 (7-56) units/L Alkaline Phosphatase 87 (35-129) units/L Total Creatine Kinase (55-170) units/L CK-MB (CK-2) (0.0-4.0) ng/mL CK-MB (CK-2) Rel Index (0-4) Troponin T (0.00-0.029) ng/mL NT-Pro-B Natriuret Pep 135.4 (0-900) pg/mL Total Protein 7.2 (6.3-8.2) g/dL Albumin 3.9 (3.9-5) g/dL Albumin/Globulin Ratio 1.2 % Plasma/Serum Alcohol (0-0.07) % Laboratory Results - last 24 hr 02/09/19 02/09/19 02/09/19 08:46 08:46 08:46 WBC 9.0 RBC 4.81 Hgb 14.8 Hct 44.3 MCV 92 MCH 31 MCHC 34 RDW 13.6 Plt Count 157 Lymph % (Auto) 22.1 Trimble % (Auto) 8.4 H Eos % (Auto) 0.7 Baso % (Auto) 0.6 Lymph # 2.0 Trimble # 0.8 Eos # 0.1 Baso # 0.1 Seg Neutrophils % 68.2 Seg Neutrophils # 6.1 PT 13.7 INR 0.99 APTT 26.1 Thrombin Time 24.2 H Laboratory Results - last 24 hr 02/09/19 02/09/19 02/09/19 08:46 08:46 08:46 WBC 9.0 RBC 4.81 Hgb 14.8 Hct 44.3 MCV 92 MCH 31 MCHC 34 RDW 13.6 Plt Count 157 Lymph % (Auto) 22.1 Trimble % (Auto) 8.4 H Eos % (Auto) 0.7 Baso % (Auto) 0.6 Lymph # 2.0 Trimble # 0.8 Eos # 0.1 Baso # 0.1 Seg Neutrophils % 68.2 Seg Neutrophils # 6.1 PT 13.7 INR 0.99 APTT 26.1 Thrombin Time Sodium 139 Potassium 3.4 L Chloride 102.5 Carbon Dioxide 25 Anion Gap 15 BUN 10 Creatinine 0.9 Estimated GFR > 60 BUN/Creatinine Ratio 11 Glucose 104 H Lactic Acid Calcium 8.8 Magnesium Total Bilirubin Direct Bilirubin Indirect Bilirubin AST ALT Alkaline Phosphatase Total Creatine Kinase CK-MB (CK-2) CK-MB (CK-2) Rel Index Troponin T < 0.010 NT-Pro-B Natriuret Pep Total Protein Albumin Albumin/Globulin Ratio Plasma/Serum Alcohol 02/09/19 02/09/19 02/09/19 08:46 08:46 08:46 WBC RBC Hgb Hct MCV MCH MCHC RDW Plt Count Lymph % (Auto) Trimble % (Auto) Eos % (Auto) Baso % (Auto) Lymph # Trimble # Eos # Baso # Seg Neutrophils % Seg Neutrophils # PT INR APTT Thrombin Time 24.2 H Sodium Potassium Chloride Carbon Dioxide Anion Gap BUN Creatinine Estimated GFR BUN/Creatinine Ratio Glucose Lactic Acid Calcium Magnesium Total Bilirubin Direct Bilirubin Indirect Bilirubin AST ALT Alkaline Phosphatase Total Creatine Kinase 628 H CK-MB (CK-2) 6.0 H CK-MB (CK-2) Rel Index 0.9 Troponin T NT-Pro-B Natriuret Pep Total Protein Albumin Albumin/Globulin Ratio Plasma/Serum Alcohol < 0.01 02/09/19 02/09/19 08:46 08:46 WBC RBC Hgb Hct MCV MCH MCHC RDW Plt Count Lymph % (Auto) [place]ble % (Auto) Eos % (Auto) Baso % (Auto) Lymph # Trimble # Eos # Baso # Seg Neutrophils % Seg Neutrophils # PT INR APTT Thrombin Time Sodium Potassium Chloride Carbon Dioxide Anion Gap BUN Creatinine Estimated GFR BUN/Creatinine Ratio Glucose Lactic Acid 1.60 Calcium Magnesium 2.10 Total Bilirubin 0.20 Direct Bilirubin < 0.2 Indirect Bilirubin 0.0 AST 23 ALT 15 Alkaline Phosphatase 87 Total Creatine Kinase CK-MB (CK-2) CK-MB (CK-2) Rel Index Troponin T NT-Pro-B Natriuret Pep 135.4 Total Protein 7.2 Albumin 3.9 Albumin/Globulin Ratio 1.2 Plasma/Serum Alcohol - Radiology Data Radiology results: report reviewed (chest x-ray no acute process CT the head old large MCA stroke without interval change from 02/06/2019 CT images.) Her full spine showed diffuse degenerative disease. Cervical cord stenosis. Critical care attestation.: If time is entered above; I have spent that time in minutes in the direct care of this critically ill patient, excluding procedure time. ED Disposition Clinical Impression: Left hemiparesis, Manuel's paresis, Generalized seizure Facial contusion Qualifiers: Encounter type: initial encounter Qualified Code(s): S00.83XA - Contusion of other part of head, initial encounter Disposition: 09 OP ADMIT IP TO THIS HOSP Is pt being admited?: Yes Does the pt Need Aspirin: Yes Condition: Stable Referrals: BETHANY MORTON MD [Primary Care Provider] - 3-5 Days Time of Disposition: 11:40
--- NOTE | 2019-02-09 09:07 | Emergency Department Report ---
ED Neuro Deficit HPI - General Chief Complaint: Neuro Symptoms/Deficit Stated Complaint: POSS CVA Time Seen by Provider: 02/09/19 08:35 Source: EMS Mode of arrival: Stretcher Limitations: Physical Limitation - History of Present Illness Initial Comments: [facility] DATE: Feb 09 2019 Impression: AMS-worsening concentration hx seizures vaugue in terms of history and workup patient is a difficult historian. It sounds like he may have had a seizure yesterday. Unclear when his Keppra dose was last changed. He had worsening left sided weakness and confusion on arrival seems to be clearing perhaps family can confirm if this is how he looks normally or post seizure given very large prior R MCA cva. Not a tpa candidate due to:sx not c/w stroke Symptoms (not) consistent with LVO therefore no role for emergent advanced neuro imaging Differential Diagnosis: Breakthrough seizure, toxic metabolic encephalopathy,,new stroke less likely Comments: Last known normal patient seems to be a baseline [facility] contacted: 08:25 [facility] at bedside: 08:28 NIHSS assessment time: 08:44 Recommendations: -Confirm with the family that the patient is being followed by neurologist he may benefit from an adjustment to his Keppra -he may benafit from inc keppra do not suspect new cva given hx -if family says this is not typical for his post ictal state of course additional workup for stroke ect could be persued. -cont anitplatlet therapy Inpatient neurology consultation Inpatient stroke evaluation as per Neurology/ Internal Medicine Discussed with ED MD Please call with questions --------- CC confusion History of Present Illness Patient is a 53-year-old gentleman with a history of a large prior right MCA stroke, prior seizure disorder from the stroke, hypertension, presenting with altered mental status. It sounds like the seizures may be with some twitching and some loss of contact. The patient said he had an episode yesterday and maybe with some decreased concentration today. No family at bedside. He was seen in the emergency department 3 days ago for similar symptoms. Diagnostic: CT head with chronic encephalomalacia right MCA stroke Exam: 1a- LOC: Keenly responsive - =0 1b- LOC questions: Answers both questions correctly - 0 1c- LOC commands- Performs both tasks correctly- 0 2- Gaze: Normal; no gaze paresis or gaze deviation - 0 3- Visual Guerrier left filed cute=1 4- Facial movements: nleft face =1 5- Upper limb motor - LUE=3 6- Lower limb motor - LLE-1 7- Limb Coordination: absent ataxia - 0 8- Sensory :dec =1 9- Language - No aphasia - 0 10- Speech - mild dec left =1 11- Neglect / Extinction - none found -0 NIHSS score 8 Medical Decision Making: - Extensive number of diagnosis or management options are considered above. - Extensive amount of complex data reviewed. - High risk of complication and/or morbidity or mortality are associated with differential diagnostic considerations above. - There may be Uncertain outcome and increased probability of prolonged functional impairment or high probability of severe prolonged functional impairment associated with some of these differential diagnosis. Medical Data Reviewed: 1.Data reviewed include clinical labs, radiology, Medical Tests; 2.Tests results discussed w/performing or interpreting physician; 3.Obtaining/reviewing old medical records; 4.Obtaining case history from another source; 5.Independent review of image, tracing or specimen. Patient was informed the Neurology Consult would happen via telehealth (remote video) and consented to receiving care in this manner. - Related Data Home Medications: Previous Rx's Medication Instructions Recorded Last Taken Type Aspirin [Aspirin BABY CHEW TAB] 81 mg PO QDAY #30 tab.chew 06/10/15 Unknown Rx DULoxetine [Cymbalta] 60 mg PO QDAY #30 capsule 06/10/15 Unknown Rx Metoprolol [Lopressor TAB] 25 mg PO BID@0800,2200 #60 tablet 06/10/15 Unknown Rx Nicotine [Habitrol] 14 mg TD QDAY #30 patch 06/10/15 Unknown Rx levETIRAcetam [Keppra TAB] 500 mg PO BID@0800,2200 #60 tablet 06/10/15 Unknown Rx traZODone [Desyrel] 25 mg PO QHS PRN #30 tablet 06/10/15 Unknown Rx Allergies/Adverse Reactions: Allergies Allergy/AdvReac Type Severity Reaction Status Date / Time No Known Allergies Allergy Verified 04/26/15 21:27 ED Review of Systems ROS: Stated complaint: POSS CVA Other details as noted in HPI ED Past Medical Hx - Past Medical History Previous Medical History?: Yes Hx Hypertension: Yes Hx CVA: Yes (residual left sided deficits) Hx Congestive Heart Failure: No Hx Diabetes: Yes Hx Deep Vein Thrombosis: No Hx Seizures: Yes Hx Kidney Stones: Yes Hx Asthma: Yes Hx COPD: No Hx Tuberculosis: No Hx HIV: No Additional medical history: right carotid artery stenosis (approx. 90% blockage per family) - Surgical History Hx Pacemaker: No Hx Internal Defibrillator: No - Social History Smoking Status: Current Some Day Smoker Substance Use Type: Alcohol - Medications Home Medications: Home Medications Medication Instructions Recorded Confirmed Last Taken Type Aspirin [Aspirin BABY CHEW TAB] 81 mg PO QDAY #30 tab.chew 06/10/15 Unknown Rx DULoxetine [Cymbalta] 60 mg PO QDAY #30 capsule 06/10/15 Unknown Rx Metoprolol [Lopressor TAB] 25 mg PO BID@0800,2200 #60 tablet 06/10/15 Unknown Rx Nicotine [Habitrol] 14 mg TD QDAY #30 patch 06/10/15 Unknown Rx levETIRAcetam [Keppra TAB] 500 mg PO BID@0800,2200 #60 tablet 06/10/15 Unknown Rx traZODone [Desyrel] 25 mg PO QHS PRN #30 tablet 06/10/15 Unknown Rx ED Neuro Physical Exam - General Limitations: Physical Limitation Suspected Stroke: Yes - NIHSS Assessment Interval: Baseline 1a. Level of Consciousness: alert/keenly responsive 1b. LOC Questions: answers both correctly 1c. LOC Commands: performs tasks correctly 2. Best Gaze: normal 3. Visual: partial hemianopia 4. Facial Palsy: minor paralysis 5b. Motor Arm Right: no drift 5a. Motor Arm Left: no gravity effort 6a. Motor Leg Left: drift 6b. Motor Leg Right: no drift 7. Limb Ataxia: absent 8. Sensory: mild/moderate sensory loss 9. Best Language: no aphasia 10. Dysarthria: mild/moderate dysarthria 11. Extinction/Inattention: no abnormality Total Score: 8 Stroke Severity: Moderate Stroke Critical care attestation.: If time is entered above; I have spent that time in minutes in the direct care of this critically ill patient, excluding procedure time. ED Disposition Clinical Impression: Altered mental status Qualifiers: Altered mental status type: disorientation Qualified Code(s): R41.0 - Disorientation, unspecified Disposition: DC-09 OP ADMIT IP TO THIS HOSP Is pt being admited?: Yes Condition: Stable Referrals: BETHANY MORTON MD [Primary Care Provider] - 3-5 Days
[2019-02-09 09:15] LABS: Basophils # (Auto) 0.1 K/mm3 (0.0-0.1); Basophils % (Auto) 0.6 % (0.0-1.8); Eosinophils # (Auto) 0.1 K/mm3 (0.0-0.4); Eosinophils % (Auto) 0.7 % (0.0-4.3); Hematocrit 44.3 % (35.5-45.6); Hemoglobin 14.8 gm/dl (11.8-15.2); Lymphocytes % (Auto) 22.1 % (13.4-35.0); Mean Corpuscular HGB Conc 34 % (32-34); Mean Corpuscular Volume 92 fl (84-94); Monocytes # (Auto) 0.8 K/mm3 (0.0-0.8); Monocytes % (Auto) 8.4 % (0.0-7.3); Platelet Count 157 K/mm3 (140-440); Red Blood Count 4.81 M/mm3 (3.65-5.03); Red Cell Distribution Width 13.6 % (13.2-15.2)
[2019-02-09 09:25] LABS: INR 0.99 (0.87-1.13)
[2019-02-09 09:26] LABS: Partial Thromboplastin Time 26.1 Sec. (24.2-36.6)
--- NOTE | 2019-02-09 09:29 | XRay Report ---
AP CHEST: HISTORY: Hypertension There is poor inspiration. AP view of the chest demonstrates a normal mediastinal and cardiac contour with clear lungs and normal bony and soft tissue structures. IMPRESSION: Unremarkable AP chest.
[2019-02-09 09:36] LABS: BUN/Creatinine Ratio 11; Blood Urea Nitrogen 10 mg/dL (9-20); Calcium 8.8 mg/dL (8.4-10.2); Hemolysis Index 5
[2019-02-09 09:40] LABS: Alanine Aminotransferase 15 units/L (7-56); Albumin 3.9 g/dL (3.9-5)
[2019-02-09 09:44] LABS: Bilirubin,Direct < 0.2 mg/dL (0-0.2)
[2019-02-09] MEDS ORDERED: K-DUR PO ONE (10:28)
[2019-02-09] MEDS: ASPIRIN PO SCH (11:00)
--- NOTE | 2019-02-09 11:50 | Cat Scan Report ---
PROCEDURE: CT CERVICAL SPINE WO CON TECHNIQUE: CT examination of the cervical spine without IV contrast CT DOSE LENGTH PRODUCT: 566.8 mGycm HISTORY: facial trauma, altered mental status COMPARISONS: None . FINDINGS: Nonspecific slight diffuse cervical kyphosis. Prevertebral soft tissues are without swelling. No evidence of cervical fracture or vertebral compression. Multilevel degenerative changes are present at the vertebral endplates, facet joints, and uncinate abraham ints. Anterolisthesis: None. Retrolisthesis: None. Disc narrowing: C2-3 moderate, C3-4 severe, C4-5 severe, C5-6 severe, C6-7 severe Vertebral end plate, uncinate, and facet degenerative hypertrophic change is associated with osseous neural foraminal stenosis: Right neural foraminal stenosis: C3-4 slight, C4-5 moderate, C5-6 slight, C6-C7 severe Left neural foraminal stenosis: C2-3 slight, C3-4 slight, C6-7 slight to moderate Degenerative posterior vertebral endplate bone spurring is present from C4 through C7, narrowing cent ral canal. Bilateral small cervical ribs at C7, larger on the right. Developmental variation. IMPRESSION: No acute skeletal pathology in the cervical spine Diffuse cervical kyphosis may be from degenerative disc and joint disease. Differential includes cerv ical spasm Multilevel degenerative change, disc narrowing, neural foraminal stenosis, and posterior vertebral en dplate bone spurring which may contribute to central canal stenosis Developmental variation with bilateral small cervical ribs at C7, larger on the right This document is electronically signed by Tobias Jose MD., Feb 09 2019 11:48:12 AM ET
[2019-02-09] MEDS ORDERED: DESYREL PO PRN (13:22)
--- NOTE | 2019-02-09 13:25 | History and Physical Report ---
History of Present Illness Date of examination: 02/09/19 Date of admission: 02/09/19 10:20 Chief complaint: Stroke like symptoms/stroke protocol History of present illness: 53-year-old male with significant past medical history of CVA with residual left-sided weakness ambulates with a cane seizure disorder on antiepileptic medications was walking in a store and had a fall and injured his face , no history suggestive of witnessed seizures yesterday .patient reports that his left-sided weakness became worse for the last 1-2 days . Patient denies any chest pain or shortness of breath, complains of mild headache, no loss of consciousness No nausea vomiting or abdominal pain Patient is not a candidate for TPA Initial CT scan done in the emergency CT head did not reveal any acute intracranial abnormalities however findings consistent with large chronic right MCA infarct Patient reports that he might have had a short "seizure". 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 As per the ER note patient was aphasic upon presentation, however at the time of my evaluation patient was in his speech Past History Past Medical History: hypertension, seizures, stroke Social history: lives with family, smoking. denies: alcohol abuse, prescription drug abuse Family history: hypertension Medications and Allergies Allergies Allergy/AdvReac Type Severity Reaction Status Date / Time No Known Allergies Allergy Verified 04/26/15 21:27 Home Medications Medication Instructions Recorded Confirmed Last Taken Type Aspirin [Aspirin BABY CHEW TAB] 81 mg PO QDAY #30 tab.chew 06/10/15 02/09/19 Unknown Rx DULoxetine [Cymbalta] 60 mg PO QDAY #30 capsule 06/10/15 02/09/19 Unknown Rx Metoprolol [Lopressor TAB] 25 mg PO BID@0800,2200 #60 tablet 06/10/15 02/09/19 Unknown Rx Nicotine [Habitrol] 14 mg TD QDAY #30 patch 06/10/15 02/09/19 Unknown Rx levETIRAcetam [Keppra TAB] 500 mg PO BID@0800,2200 #60 tablet 06/10/15 02/09/19 Unknown Rx traZODone [Desyrel] 25 mg PO QHS PRN #30 tablet 06/10/15 02/09/19 Unknown Rx Active Meds: Active Medications Aspirin (Aspirin) 325 mg PO QDAY DEMETRIA Last Admin: 02/09/19 11:00 Dose: 325 mg Documented by: Aspirin (Baby Aspirin) 81 mg PO QDAY [facility] Duloxetine HCl (Cymbalta) 60 mg PO QDAY [facility] Levetiracetam (Keppra) 500 mg PO BID@0800,2200 [facility] Metoprolol Tartrate (Lopressor) 25 mg PO BID@0800,2200 [facility] Nicotine (Habitrol) 14 mg TD QDAY [facility] Trazodone HCl (Desyrel) 25 mg PO QHS PRN PRN Reason: Insomnia Review of Systems Constitutional: weakness, no weight loss, no weight gain Ears, nose, mouth and throat: no nasal congestion, no nasal discharge Cardiovascular: no chest pain, no orthopnea, no palpitations Respiratory: no cough, no hemoptysis Gastrointestinal: no abdominal pain, no nausea, no vomiting Genitourinary Male: no dysuria, no hematuria Musculoskeletal: other (left-sided weakness and left-sided weakness) Integumentary: no rash, no lesions Neurological: weakness, seizures, change in speech, other (Lt sided weakness) Psychiatric: no anxiety, no depression Endocrine: no cold intolerance, no heat intolerance Hematologic/Lymphatic: no easy bruising, no easy bleeding Allergic/Immunologic: no urticaria, no allergic rhinitis Exam - Constitutional Vitals: Temp Pulse Resp BP Pulse Ox 98.8 F 73 16 110/73 97 02/09/19 10:01 02/09/19 11:15 02/09/19 11:15 02/09/19 11:15 02/09/19 11:15 General appearance: Present: mild distress, other - EENT Eyes: Present: PERRL, EOM intact - Neck Neck: Present: supple, normal ROM - Respiratory Respiratory effort: normal Respiratory: bilateral: diminished, negative: rales, rhonchi, wheezing - Cardiovascular Rhythm: regular Heart Sounds: Present: S1 & S2 - Extremities Extremities: no ischemia, No edema - Abdominal General gastrointestinal: Present: soft, non-tender, non-distended, normal bowel sounds - Integumentary Integumentary: Present: clear, warm - Musculoskeletal Musculoskeletal: strength equal bilaterally, generalized weakness - Psychiatric Psychiatric: appropriate mood/affect, cooperative - Neurologic Neurologic: other (left hemiparesis , Lt UE paralysis) Results - Labs CBC & Chem 7: 02/09/19 08:46 05/24/19 08:46 Labs: Abnormal lab results 02/09/19 02/09/19 02/09/19 Range/Units 08:46 08:46 08:46 [place] % (Auto) 8.4 H (0.0-7.3) % Thrombin Time 24.2 H (15.1-19.6) Sec. Potassium 3.4 L (3.6-5.0) mmol/L Glucose 104 H (75-100) mg/dL Total Creatine Kinase (55-170) units/L CK-MB (CK-2) (0.0-4.0) ng/mL 02/09/19 Range/Units 08:46 [place] % (Auto) (0.0-7.3) % Thrombin Time (15.1-19.6) Sec. Potassium (3.6-5.0) mmol/L Glucose (75-100) mg/dL Total Creatine Kinase 628 H (55-170) units/L CK-MB (CK-2) 6.0 H (0.0-4.0) ng/mL Assessment and Plan --Acute on chronic CVA with Lt sided weakness; Not a candidate for TPA, aspirin, Plavix and statin Neuro workup with MRI/MRA brain, carotid Doppler, echocardiogram EEG, neurology consult, speech therapy PT OT rehabilitation --Seizure disorder; probably breakthrough seizures Patient claims competence with antiepileptics Seizure precautions and resume keppra, increase to 750 twice a day Ativan as needed --Dyslipidemia; statin --DVT prophylaxis; Lovenox --Full CODE STATUS Monitor closely and adjust the management as needed Plan of care is reviewed with the patient and his nurse
[2019-02-09 14:17] LABS: Chol/HDL Ratio 3.59 %
[2019-02-09] MEDS ORDERED: ATIVAN IV PRN (17:03)
--- NOTE | 2019-02-09 18:43 | Magnetic Resonance Report ---
PROCEDURE: MR BRAIN WO CON HISTORY: left hemiplegia with dish on CT FINDINGS: MRI of the brain was performed using sagittal T1, axial diffusion, axial T2*gradient echo, axial T2, axial FLAIR, axial T1, coronal FLAIR images. These images demonstrate that there is a complete corpus callosum. There is no Chiari malformation. Diffusion-weighted images demonstrate no acute transcortical or acute lacunar infarct. There is an old right-sided infarct involving most of the right frontal lobe, the right anterior temp oral lobe, the right periventricular white matter, most of the right basal ganglia, AND the right ant erior parietal lobe, with encephalomalacia. There are mild chronic-appearing small vessel ischemic white matter changes in subcortical and perive ntricular white matter. There are normal flow voids in the vertebral arteries, basilar artery and both internal carotid arter ies. The mastoid air cells appear clear. There is no evidence of acute sinusitis. IMPRESSION: Old right-sided infarct involving most of the right frontal lobe, the right anterior temp oral lobe, the right basal ganglia, and the right anterior parietal lobe No acute infarct is seen This document is electronically signed by Britton Lamar MD., Feb 09 2019 06:41:06 PM ET
--- NOTE | 2019-02-09 18:45 | Magnetic Resonance Report ---
PROCEDURE: MR MRA/MRV HEAD WO CON HISTORY: left hemiplegia with dish on CT FINDINGS: MRA of the brain was performed using [id number] angiography. In the posterior circulation, both vertebral arteries are patent. The basilar artery is patent. Both posterior cerebral arteries appear widely patent. In the anterior circulation the internal carotid arteries are widely patent. There is a mild short se gment stenosis of the distal aspect of the right M1 segment and a moderate short segment stenosis of the proximal aspect of the left M2 segment. The anterior cerebral arteries are patent bilaterally. IMPRESSION: The intracranial arterial vasculature appears patent This document is electronically signed by Britton Lamar MD., Feb 09 2019 06:43:08 PM ET
--- NOTE | 2019-02-09 18:52 | Magnetic Resonance Report ---
PROCEDURE: MR CERVICAL SPINE WO CON HISTORY: left hemiplegia with dish on CT FINDINGS: MRI of the cervical spine was performed using sagittal T1, sagittal T2, sagittal inversion recovery, axial T2 and axial T2*gradient echo images. Images are degraded by patient motion. These images demonstrate that the visualized portion of the posterior fossa is within normal limits. The C1-C2 articulation is normally aligned. At C2-C3 there are no posterior disc abnormalities. There is no evidence of canal stenosis or signifi cant neural foraminal narrowing. At C3-C4 there is a posterior disc bulge which mildly effaces the anterior margin of the thecal sac b ut does not result in canal stenosis. There is mild left foraminal narrowing. there is no right wendy inal narrowing there is no evidence of nerve root impingement. At C4-C5 there is a small posterior disc bulge. There is right eccentric endplate remodeling resultin g in moderate right foraminal narrowing with suspected mild impingement of the exiting right C5 nerve root. There is no evidence of left-sided impingement. At C5-C6 there are no posterior disc abnormalities At C6-C7 there is a small posterior disc bulge which does not result in canal stenosis. There is mild bilateral neural foraminal narrowing without nerve root impingement At C7-T1 there are no posterior disc abnormalities There is loss of normal cervical lordosis which may be due to pain, muscle spasm or patient positioni ng for the examination. At C3, there is some high T2 signal intensity within the left aspect of the cord, axial T2-weighted i mage 25, 0.4 cm. This is not characterized. It could represent focus of demyelination or consequence of cord insult. Unfortunately, the sagittal images on this patient and limited by patient motion and this is not well seen on other sequences. Consider postcontrast imaging for further evaluation IMPRESSION: Impingement of the exiting right C5 nerve root Focus of abnormal cord signal in the left at C3, not characterized. Consider postcontrast images for further evaluation This document is electronically signed by Britton Lamar MD., Feb 09 2019 06:49:54 PM ET
[2019-02-09 19:09] LABS: Amphetamine Screen,Urine PRESUMPTIVE NEGATIVE; Benzodiazepines Screen,Urine PRESUMPTIVE NEGATIVE; Cannabinoid Screen,Urine PRESUMPTIVE NEGATIVE; Cocaine Screen,Urine PRESUMPTIVE NEGATIVE; Methadone Screen,Urine PRESUMPTIVE NEGATIVE; Opiate Screen,Urine PRESUMPTIVE NEGATIVE
[2019-02-09 19:19] LABS: Bilirubin,Urine NEG (Negative); Blood,Urine MOD (Negative); Color,Urine Yellow (Yellow); Mucus,Urine FEW /HPF; Protein,Urine <15 mg/dL mg/dL (Negative); Urobilinogen,Urine < 2.0 mg/dL (<2.0)
[2019-02-09] MEDS: KEPPRA PO SCH (22:57)
[2019-02-09] MEDS: LOPRESSOR PO SCH (22:57)
[2019-02-10] MEDS ORDERED: TYLENOL PO PRN (03:34)
[2019-02-10 05:27] LABS: Basophils % (Auto) 0.4 % (0.0-1.8); Eosinophils # (Auto) 0.1 K/mm3 (0.0-0.4); Eosinophils % (Auto) 0.6 % (0.0-4.3); Hematocrit 42.2 % (35.5-45.6); Hemoglobin 14.5 gm/dl (11.8-15.2); Lymphocytes % (Auto) 21.2 % (13.4-35.0); Mean Corpuscular HGB Conc 34 % (32-34); Mean Corpuscular Volume 91 fl (84-94); Monocytes # (Auto) 0.8 K/mm3 (0.0-0.8); Monocytes % (Auto) 8.6 % (0.0-7.3); Platelet Count 152 K/mm3 (140-440); Red Blood Count 4.67 M/mm3 (3.65-5.03); Red Cell Distribution Width 13.3 % (13.2-15.2)
[2019-02-10 05:45] LABS: BUN/Creatinine Ratio 10; Blood Urea Nitrogen 8 mg/dL (9-20); Calcium 8.9 mg/dL (8.4-10.2); Hemolysis Index 5
--- NOTE | 2019-02-10 07:55 | Progress Note ---
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; Not a candidate for TPA, aspirin, Plavix and statin Neuro workup MRI/MRA negative for acute abnormality, large old infarct EEG, neurology consult, speech therapy PT OT rehabilitation Workup so far ; CT head without contrast; no acute intracranial abnormality, large colonic MCA infarct with right-sided MRI brain; right-sided infarct involving most of the right frontal lobe right anterior temporal lobe and right basal ganglia and right anterior parietal lobe, no acute infarct MRA brain; intracranial arterial vasculature, appears patent Carotid Doppler; Echocardiogram; CT cervical spine; no acute skeletal pathology in the cervical spine Multilevel degenerative changes disc narrowing neural foraminal stenosis posterior vertebral endplate bone spurring contribute to central canal stenosis Diffuse cervical kyphosis may be from the degenerative disc and joint disease MRI CT spine; impingement of the existing right C5 nerve root abnormal cord signal in the left at C3 consider post contrast images for further evaluation --Seizures attributed to h/o large CVA ; Patient claims competence with antiepileptics Seizure precautions and resume keppra, increase to 750 twice a day Ativan as needed --Degenerative cervical spine disease; probably chronic changes Supportive care, may need neurosurgical evaluation upon discharge --Dyslipidemia; statin --DVT prophylaxis; Lovenox --Full CODE STATUS Monitor closely and adjust the management as needed Plan of care is reviewed with the patient and his nurse History Interval history: Patient seen and examined medical records reviewed Patient feels slightly better, alert and awake responding appropriately No new complaints Neurologic workup reviewed, no acute changes noted on MRI brain/MRA brain/CT head Chronic C-spine degenerative disease findings noted No new events reported by the nursing Vital signs reviewed Hospitalist Physical - Constitutional Vitals: Temp Pulse Resp BP Pulse Ox 98.4 F 61 18 125/57 93 02/10/19 06:26 02/10/19 06:26 02/10/19 06:26 02/10/19 06:26 02/10/19 06:26 General appearance: Present: no acute distress, well-nourished, other (responds appropriately) - EENT Eyes: Present: PERRL (left lateral gaze) - Neck Neck: Present: supple, normal ROM - Respiratory Respiratory effort: normal Respiratory: bilateral: diminished, negative: rales, rhonchi, wheezing - Cardiovascular Rhythm: regular Heart Sounds: Present: S1 & S2 - Extremities Extremities: no ischemia, No edema - Abdominal General gastrointestinal: soft, non-tender, non-distended, normal bowel sounds - Integumentary Integumentary: Present: clear, warm - Psychiatric Psychiatric: appropriate mood/affect, cooperative - Neurologic Neurologic: other (left-sided hemiparesis, speech clear) Results - Labs CBC & Chem 7: 02/10/19 05:13 02/10/19 05:13 Labs: Laboratory Last Values WBC 9.3 K/mm3 (4.5-11.0) 02/10/19 05:13 RBC 4.67 M/mm3 (3.65-5.03) 02/10/19 05:13 Hgb 14.5 gm/dl (11.8-15.2) 02/10/19 05:13 Hct 42.2 % (35.5-45.6) 02/10/19 05:13 MCV 91 fl (84-94) 02/10/19 05:13 MCH 31 pg (28-32) 02/10/19 05:13 MCHC 34 % (32-34) 02/10/19 05:13 RDW 13.3 % (13.2-15.2) 02/10/19 05:13 Plt Count 152 K/mm3 (140-440) 02/10/19 05:13 Lymph % (Auto) 21.2 % (13.4-35.0) 02/10/19 05:13 [place] % (Auto) 8.6 % (0.0-7.3) H 02/10/19 05:13 Eos % (Auto) 0.6 % (0.0-4.3) 02/10/19 05:13 Baso % (Auto) 0.4 % (0.0-1.8) 02/10/19 05:13 Lymph # 2.0 K/mm3 (1.2-5.4) 02/10/19 05:13 [place] # 0.8 K/mm3 (0.0-0.8) 02/10/19 05:13 Eos # 0.1 K/mm3 (0.0-0.4) 02/10/19 05:13 Baso # 0.0 K/mm3 (0.0-0.1) 02/10/19 05:13 Seg Neutrophils % 69.2 % (40.0-70.0) 02/10/19 05:13 Seg Neutrophils # 6.4 K/mm3 (1.8-7.7) 02/10/19 05:13 PT 13.7 Sec. (12.2-14.9) 02/09/19 08:46 INR 0.99 (0.87-1.13) 02/09/19 08:46 APTT 26.1 Sec. (24.2-36.6) 02/09/19 08:46 24.2 Sec. (15.1-19.6) H 02/09/19 08:46 Sodium 139 mmol/L (137-145) 02/10/19 05:13 Potassium 4.0 mmol/L (3.6-5.0) 02/10/19 05:13 Chloride 102.4 mmol/L (98-107) 02/10/19 05:13 Carbon Dioxide 25 mmol/L (22-30) 02/10/19 05:13 16 mmol/L 02/10/19 05:13 BUN 8 mg/dL (9-20) L 02/10/19 05:13 0.8 mg/dL (0.8-1.5) 02/10/19 05:13 Estimated GFR > 60 ml/min 02/10/19 05:13 10 % 02/10/19 05:13 Glucose 120 mg/dL (75-100) H 02/10/19 05:13 Lactic Acid 1.60 mmol/L (0.7-2.0) 02/09/19 08:46 Calcium 8.9 mg/dL (8.4-10.2) 02/10/19 05:13 Magnesium 2.10 mg/dL (1.7-2.3) 02/09/19 08:46 0.20 mg/dL (0.1-1.2) 02/09/19 08:46 < 0.2 mg/dL (0-0.2) 02/09/19 08:46 0.0 mg/dL 02/09/19 08:46 AST 23 units/L (5-40) 02/09/19 08:46 ALT 15 units/L (7-56) 02/09/19 08:46 87 units/L (35-129) 02/09/19 08:46 628 units/L (55-170) H 02/09/19 08:46 CK-MB (CK-2) 6.0 ng/mL (0.0-4.0) H 02/09/19 08:46 CK-MB (CK-2) Rel Index 0.9 (0-4) 02/09/19 08:46 < 0.010 ng/mL (0.00-0.029) 02/09/19 08:46 NT-Pro-B Natriuret Pep 135.4 pg/mL (0-900) 02/09/19 08:46 7.2 g/dL (6.3-8.2) 02/09/19 08:46 3.9 g/dL (3.9-5) 02/09/19 08:46 1.2 % 02/09/19 08:46 Triglycerides 103 mg/dL (2-149) 02/09/19 08:24 Cholesterol 151 mg/dL (50-199) 02/09/19 08:24 103 mg/dL (50-130) 02/09/19 08:24 42 mg/dL (40-59) 02/09/19 08:24 3.59 % 02/09/19 08:24 Yellow (Yellow) 02/09/19 18:17 Clear (Clear) 02/09/19 18:17 6.0 (5.0-7.0) 02/09/19 18:17 Ur Specific [place] 1.020 (1.003-1.030) 02/09/19 18:17 <15 mg/dl mg/dL (Negative) 02/09/19 18:17 Neg mg/dL (Negative) 02/09/19 18:17 Neg mg/dL (Negative) 02/09/19 18:17 Mod (Negative) 02/09/19 18:17 Neg (Negative) 02/09/19 18:17 Neg (Negative) 02/09/19 18:17 < 2.0 mg/dL (<2.0) 02/09/19 18:17 Ur Leukocyte Esterase Neg (Negative) 02/09/19 18:17 3.0 /HPF (0.0-6.0) 02/09/19 18:17 10.0 /HPF (0.0-6.0) 02/09/19 18:17 U Epithel Cells (Auto) 1.0 /HPF (0-13.0) 02/09/19 18:17 Few /HPF 02/09/19 18:17 Presumptive negative 02/09/19 18:17 Presumptive negative 02/09/19 18:17 Ur Barbiturates Screen Presumptive negative 02/09/19 18:17 Ur Phencyclidine Scrn Presumptive negative 02/09/19 18:17 Ur Amphetamines Screen Presumptive negative 02/09/19 18:17 U Benzodiazepines Scrn Presumptive negative 02/09/19 18:17 Presumptive negative 02/09/19 18:17 U Marijuana (THC) Screen Presumptive negative 02/09/19 18:17 Disclamer 02/09/19 18:17 Plasma/Serum Alcohol < 0.01 % (0-0.07) 02/09/19 08:46 Active Medications - Current Medications Current Medications: Generic Name Dose Route Start Last Admin Trade Name Freq PRN Reason Stop Dose Admin Acetaminophen 650 mg 02/10/19 03:34 02/10/19 03:46 Tylenol PO 650 mg Q6H PRN Administration Pain, Mild (1-3) Aspirin 325 mg 02/09/19 11:00 02/09/19 11:00 Aspirin PO 325 mg QDAY DEMETRIA Administration Aspirin 81 mg 02/10/19 10:00 Baby Aspirin PO QDAY DEMETRIA Atorvastatin Calcium 40 mg 02/09/19 22:00 02/09/19 22:57 Lipitor PO 40 mg QHS DEMETRIA Administration Duloxetine HCl 60 mg 02/10/19 10:00 Cymbalta PO QDAY DEMETRIA Levetiracetam 500 mg 02/09/19 22:00 02/09/19 22:57 Keppra PO 500 mg BID@0800,2200 DEMETRIA Administration Lorazepam 2 mg 02/09/19 17:03 Ativan IV Q1H PRN Seizures Metoprolol Tartrate 25 mg 02/09/19 22:00 02/09/19 22:57 Lopressor PO 25 mg BID@0800,2200 DEMETRIA Administration Nicotine 14 mg 02/10/19 10:00 Habitrol TD QDAY DEMETRIA Trazodone HCl 25 mg 02/09/19 13:22 02/09/19 23:00 Desyrel PO 25 mg QHS PRN Administration Insomnia
[2019-02-10] MEDS: BABY ASPIRIN PO SCH (09:32)
[2019-02-10] MEDS: CYMBALTA PO SCH (09:32)
[2019-02-10] MEDS: KEPPRA PO SCH ×2 (09:33→21:56)
[2019-02-10] MEDS: ASPIRIN PO SCH (09:33)
[2019-02-10] MEDS: HABITROL TD SCH (09:33)
[2019-02-10] MEDS: LOPRESSOR PO SCH ×2 (09:33→21:56)
--- NOTE | 2019-02-10 12:49 | Progress Note ---
Subjective Date of service: 02/10/19 Interval history: several take way points from the MRI/MRA there i no acute stroke only the large old chronic stroke in the right MCA the right MCA is patent but small area of stenosis less flow laura the right MCA suspect there was old embolus in main branch but artery re-canalized Objective - Vital Sign Vital Signs - 12hr 02/10/19 02/10/19 02/10/19 06:26 09:33 11:45 Temperature 98.4 F 98.8 F Pulse Rate 61 60 71 Respiratory 18 20 Rate Blood Pressure 125/57 108/78 O2 Sat by Pulse 93 95 Oximetry - Laboratory Findings CBC and BMP: 02/10/19 05:13 02/10/19 05:13 Abnormal Lab Findings: Abnormal Labs 02/09/19 02/09/19 02/09/19 08:46 08:46 08:46 [place] % (Auto) 8.4 H Thrombin Time 24.2 H Potassium 3.4 L BUN Glucose 104 H Total Creatine Kinase CK-MB (CK-2) 02/09/19 02/10/19 02/10/19 08:46 05:13 05:13 [place] % (Auto) 8.6 H Thrombin Time Potassium BUN 8 L Glucose 120 H Total Creatine Kinase 628 H CK-MB (CK-2) 6.0 H
[2019-02-11] MEDS: LOPRESSOR PO SCH ×2 (08:35→22:47)
[2019-02-11] MEDS: KEPPRA PO SCH ×2 (08:36→22:47)
--- NOTE | 2019-02-11 09:49 | Progress Note ---
Subjective Date of service: 02/11/19 Interval history: i did extensive review of the ED note as well as the PMH and I do not believe this is new stroke suspect there was gneralized seizure and Manuel's Paralysis recommend anticonvulsants there may be confounding factor in alcohol withdrawal I would as well treat the withdrawal with thiamine ... EEG is pending Objective - Vital Sign Vital Signs - 12hr 02/10/19 02/10/19 02/10/19 21:54 21:56 22:00 Temperature 98.0 F Pulse Rate 76 75 Respiratory 18 Rate Respiratory 18 Rate [ Generalized] Respiratory 18 Rate [Head] Blood Pressure 131/76 124/89 O2 Sat by Pulse 96 Oximetry 02/10/19 02/11/19 02/11/19 23:47 05:05 08:35 Temperature 98.2 F Pulse Rate 62 87 Respiratory 18 24 Rate Respiratory Rate [ Generalized] Respiratory Rate [Head] Blood Pressure 107/63 O2 Sat by Pulse 91 Oximetry - Laboratory Findings CBC and BMP: 02/10/19 05:13 02/10/19 05:13 Abnormal Lab Findings: Abnormal Labs 02/09/19 02/09/19 02/09/19 08:46 08:46 08:46 [place] % (Auto) 8.4 H Thrombin Time 24.2 H Potassium 3.4 L BUN Glucose 104 H Total Creatine Kinase CK-MB (CK-2) 02/09/19 02/10/19 02/10/19 08:46 05:13 05:13 [place] % (Auto) 8.6 H Thrombin Time Potassium BUN 8 L Glucose 120 H Total Creatine Kinase 628 H CK-MB (CK-2) 6.0 H
[2019-02-11] MEDS: HABITROL TD SCH (11:39)
[2019-02-11] MEDS: CYMBALTA PO SCH (11:41)
[2019-02-11] MEDS: BABY ASPIRIN PO SCH (11:44)
--- NOTE | 2019-02-11 13:03 | Progress Note ---
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; Not a candidate for TPA, aspirin, Plavix and statin Neuro workup MRI/MRA negative for acute abnormality, no acute CVA Large old infarct noted , neurology following, speech therapy PT OT rehabilitation Workup so far ; CT head without contrast; no acute intracranial abnormality, large colonic MCA infarct with right-sided MRI brain; right-sided infarct involving most of the right frontal lobe right anterior temporal lobe and right basal ganglia and right anterior parietal lobe, no acute infarct MRA brain; intracranial arterial vasculature, appears patent Carotid Doppler; Echocardiogram; CT cervical spine; no acute skeletal pathology in the cervical spine Multilevel degenerative changes disc narrowing neural foraminal stenosis posterior vertebral endplate bone spurring contribute to central canal stenosis Diffuse cervical kyphosis may be from the degenerative disc and joint disease MRI CT spine; impingement of the existing right C5 nerve root abnormal cord signal in the left at C3 consider post contrast images for further evaluation --Seizures attributed to h/o large CVA ; Patient claims competence with antiepileptics Seizure precautions and resume keppra, increase to 750 twice a day Ativan as needed --Degenerative cervical spine disease; probably chronic changes Supportive care, may need neurosurgical evaluation upon discharge --Dyslipidemia; statin --DVT prophylaxis; Lovenox --Full CODE STATUS Physical therapy evaluation and recommendation noted Possible discharge in 1-2 days with home health for home PT if needed Monitor closely and adjust the management as needed Plan of care is reviewed with the patient and his nurse History Interval history: Patient seen and examined medical records reviewed Patient is alert awake oriented 3 Reading a book, no new complaints Vital signs noted Received physical therapy today Hospitalist Physical - Constitutional Vitals: Temp Pulse Resp BP Pulse Ox 98.2 F 87 24 107/63 91 02/11/19 05:05 02/11/19 08:35 02/11/19 05:05 02/11/19 05:05 02/11/19 05:05 General appearance: Present: no acute distress, well-nourished - EENT Eyes: Present: PERRL, EOM intact - Neck Neck: Present: supple, normal ROM - Respiratory Respiratory effort: normal Respiratory: bilateral: diminished, negative: rales, rhonchi, wheezing - Cardiovascular Rhythm: regular Heart Sounds: Present: S1 & S2 - Extremities Extremities: no ischemia, No edema - Abdominal General gastrointestinal: soft, non-tender, non-distended, normal bowel sounds - Integumentary Integumentary: Present: clear, warm - Psychiatric Psychiatric: appropriate mood/affect, cooperative - Neurologic Neurologic: other (residual weakness) Results - Labs CBC & Chem 7: 02/10/19 05:13 02/10/19 05:13 Labs: Laboratory Last Values WBC 9.3 K/mm3 (4.5-11.0) 02/10/19 05:13 RBC 4.67 M/mm3 (3.65-5.03) 02/10/19 05:13 Hgb 14.5 gm/dl (11.8-15.2) 02/10/19 05:13 Hct 42.2 % (35.5-45.6) 02/10/19 05:13 MCV 91 fl (84-94) 02/10/19 05:13 MCH 31 pg (28-32) 02/10/19 05:13 MCHC 34 % (32-34) 02/10/19 05:13 RDW 13.3 % (13.2-15.2) 02/10/19 05:13 Plt Count 152 K/mm3 (140-440) 02/10/19 05:13 Lymph % (Auto) 21.2 % (13.4-35.0) 02/10/19 05:13 Edwards % (Auto) 8.6 % (0.0-7.3) H 02/10/19 05:13 Eos % (Auto) 0.6 % (0.0-4.3) 02/10/19 05:13 Baso % (Auto) 0.4 % (0.0-1.8) 02/10/19 05:13 Lymph # 2.0 K/mm3 (1.2-5.4) 02/10/19 05:13 Edwards # 0.8 K/mm3 (0.0-0.8) 02/10/19 05:13 Eos # 0.1 K/mm3 (0.0-0.4) 02/10/19 05:13 Baso # 0.0 K/mm3 (0.0-0.1) 02/10/19 05:13 Seg Neutrophils % 69.2 % (40.0-70.0) 02/10/19 05:13 Seg Neutrophils # 6.4 K/mm3 (1.8-7.7) 02/10/19 05:13 PT 13.7 Sec. (12.2-14.9) 02/09/19 08:46 INR 0.99 (0.87-1.13) 02/09/19 08:46 APTT 26.1 Sec. (24.2-36.6) 02/09/19 08:46 24.2 Sec. (15.1-19.6) H 02/09/19 08:46 Sodium 139 mmol/L (137-145) 02/10/19 05:13 Potassium 4.0 mmol/L (3.6-5.0) 02/10/19 05:13 Chloride 102.4 mmol/L (98-107) 02/10/19 05:13 Carbon Dioxide 25 mmol/L (22-30) 02/10/19 05:13 16 mmol/L 02/10/19 05:13 BUN 8 mg/dL (9-20) L 02/10/19 05:13 0.8 mg/dL (0.8-1.5) 02/10/19 05:13 Estimated GFR > 60 ml/min 02/10/19 05:13 10 % 02/10/19 05:13 Glucose 120 mg/dL (75-100) H 02/10/19 05:13 Lactic Acid 1.60 mmol/L (0.7-2.0) 02/09/19 08:46 Calcium 8.9 mg/dL (8.4-10.2) 02/10/19 05:13 Magnesium 2.10 mg/dL (1.7-2.3) 02/09/19 08:46 0.20 mg/dL (0.1-1.2) 02/09/19 08:46 < 0.2 mg/dL (0-0.2) 02/09/19 08:46 0.0 mg/dL 02/09/19 08:46 AST 23 units/L (5-40) 02/09/19 08:46 ALT 15 units/L (7-56) 02/09/19 08:46 87 units/L (35-129) 02/09/19 08:46 628 units/L (55-170) H 02/09/19 08:46 CK-MB (CK-2) 6.0 ng/mL (0.0-4.0) H 02/09/19 08:46 CK-MB (CK-2) Rel Index 0.9 (0-4) 02/09/19 08:46 < 0.010 ng/mL (0.00-0.029) 02/09/19 08:46 NT-Pro-B Natriuret Pep 135.4 pg/mL (0-900) 02/09/19 08:46 7.2 g/dL (6.3-8.2) 02/09/19 08:46 3.9 g/dL (3.9-5) 02/09/19 08:46 1.2 % 02/09/19 08:46 Triglycerides 103 mg/dL (2-149) 02/09/19 08:24 Cholesterol 151 mg/dL (50-199) 02/09/19 08:24 103 mg/dL (50-130) 02/09/19 08:24 42 mg/dL (40-59) 02/09/19 08:24 3.59 % 02/09/19 08:24 Yellow (Yellow) 02/09/19 18:17 Clear (Clear) 02/09/19 18:17 6.0 (5.0-7.0) 02/09/19 18:17 Ur Specific [place] 1.020 (1.003-1.030) 02/09/19 18:17 <15 mg/dl mg/dL (Negative) 02/09/19 18:17 Neg mg/dL (Negative) 02/09/19 18:17 Neg mg/dL (Negative) 02/09/19 18:17 Mod (Negative) 02/09/19 18:17 Neg (Negative) 02/09/19 18:17 Neg (Negative) 02/09/19 18:17 < 2.0 mg/dL (<2.0) 02/09/19 18:17 Ur Leukocyte Esterase Neg (Negative) 02/09/19 18:17 3.0 /HPF (0.0-6.0) 02/09/19 18:17 10.0 /HPF (0.0-6.0) 02/09/19 18:17 U Epithel Cells (Auto) 1.0 /HPF (0-13.0) 02/09/19 18:17 Few /HPF 02/09/19 18:17 Presumptive negative 02/09/19 18:17 Presumptive negative 02/09/19 18:17 Ur Barbiturates Screen Presumptive negative 02/09/19 18:17 Ur Phencyclidine Scrn Presumptive negative 02/09/19 18:17 Ur Amphetamines Screen Presumptive negative 02/09/19 18:17 U Benzodiazepines Scrn Presumptive negative 02/09/19 18:17 Presumptive negative 02/09/19 18:17 U Marijuana (THC) Screen Presumptive negative 02/09/19 18:17 Disclamer 02/09/19 18:17 Plasma/Serum Alcohol < 0.01 % (0-0.07) 02/09/19 08:46 Active Medications - Current Medications Current Medications: Generic Name Dose Route Start Last Admin Trade Name Freq PRN Reason Stop Dose Admin Acetaminophen 650 mg 02/10/19 03:34 02/10/19 03:46 Tylenol PO 650 mg Q6H PRN Administration Pain, Mild (1-3) Aspirin 81 mg 02/10/19 10:00 02/11/19 11:44 Baby Aspirin PO 81 mg QDAY DEMETRIA Administration Atorvastatin Calcium 40 mg 02/09/19 22:00 02/10/19 21:56 Lipitor PO 40 mg QHS DEMETRIA Administration Duloxetine HCl 60 mg 02/10/19 10:00 02/11/19 11:41 Cymbalta PO 60 mg QDAY DEMETRIA Administration Levetiracetam 500 mg 02/09/19 22:00 02/11/19 08:36 Keppra PO 500 mg BID@0800,2200 DEMETRIA Administration Lorazepam 2 mg 02/09/19 17:03 Ativan IV Q1H PRN Seizures Metoprolol Tartrate 25 mg 02/09/19 22:00 02/11/19 08:35 Lopressor PO Not Given BID@0800,2200 DEEMTRIA Nicotine 14 mg 02/10/19 10:00 02/11/19 11:39 Habitrol TD 14 mg QDAY DEMETRIA Administration Trazodone HCl 25 mg 02/09/19 13:22 02/09/19 23:00 Desyrel PO 25 mg QHS PRN Administration Insomnia
--- NOTE | 2019-02-11 13:06 | Consultation ---
HISTORY OF PRESENT ILLNESS: This is a 53-year-old black male that presented to the Emergency Room of [facility] on 02/09/2019. The patient presented to the Emergency Room with chief complaint of having an altered mental status, some twitching and loss of memory and consciousness after this was observed. He was seen in the Emergency Room, his family was at the bedside. He had a prior history of having a chronic encephalopathy due to a previous right-sided MCA stroke. He had been taking aspirin, Cymbalta, Lopressor and Keppra 500 mg, but the dose was unknown and also Desyrel 25 mg at bedtime. ALLERGIES: He has no known allergies. PAST MEDICAL HISTORY: Regarding the stroke is not entirely documented. He does have primary medical history of alcohol use and tobacco abuse. PHYSICAL EXAMINATION: He is slightly obtunded. He has a left hemiparesis. Speech is good. He has a right gaze preference. He does not move his left leg or left arm as well as on the right side. He has a supple neck. No meningismus. No active seizure activity is present. No focal dystonia. The patient does not have any evidence of any craniocervical trauma. Examination of the neck is unremarkable (the patient had a CT of the neck, which was no acute process, but mild disk disease). IMPRESSION: Prior chronic stroke of cerebral hemisphere. I did review over all the images with MRI, MRA and these do not show a new stroke. It showed old paucity of vessels in the right hemisphere in the right middle cerebral artery complex and also reduced flow in the right middle cerebral. There is a slight degree of stenosis in one of the distal branches, but this is quite limited. I do not see any acute clot. I am more struck by the fact that the flow was reduced generally, but this is throughout the entire middle cerebral artery system, even proximal to the area of stenosis. Reviewing the MRI, there was extensive loss of tissue in the right hemisphere indicating a very large old chronic infarct that at least appears from a proximal right ICA occlusion given the extent of the infarct. There is likely no recanalization of blood flow, but not to the recovery of any neurological tissue in the parietotemporal or frontal lobe. I do not see any new infarcts. 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 He has been taking this medication previously and from description the Emergency Room noted is apparent that he was not compliant. I would not switch medications at this time. Alcohol withdrawal seizures may be playing a component as well. JOB# [id number] YONI/EARNEST
[2019-02-11] MEDS ORDERED: LOVENOX SUB-Q SCH (22:00)
[2019-02-12] MEDS: KEPPRA PO SCH (09:43)
[2019-02-12] MEDS: BABY ASPIRIN PO SCH (09:43)
[2019-02-12] MEDS: CYMBALTA PO SCH (09:44)
[2019-02-12] MEDS: HABITROL TD SCH (09:44)
[2019-02-12] MEDS: LOPRESSOR PO SCH (09:45)
[2019-02-12 12:15] VITALS: BP 102/71
--- NOTE | 2019-02-12 14:44 | Discharge Summary ---
Providers - Providers Date of Admission: 02/09/19 10:20 Date of discharge: 02/12/19 Attending physician: GABY MCGUIRE 02/09/19 13:29 Occupational Therapy Evaluate and Treat [CONS] Routine Comment: Reason For Exam: neuro symptoms Physical Therapy Evaluation and Treat [CONS] Routine Comment: Reason For Exam: neuro symptoms 02/09/19 17:01 Consult to Physician [CONS] Routine Comment: Consulting Provider: VANDANA LIU Physician Instructions: Reason For Exam: Ac on chr CVA /lt hemiparesis/seizures Primary care physician: BETHANY MORTON MD Hospitalization Condition: Stable Pertinent studies: CT head without contrast; no acute intracranial abnormality, large colonic MCA infarct with right-sided MRI brain; right-sided infarct involving most of the right frontal lobe right anterior temporal lobe and right basal ganglia and right anterior parietal lobe, no acute infarct MRA brain; intracranial arterial vasculature, appears patent CT cervical spine; no acute skeletal pathology in the cervical spine Multilevel degenerative changes disc narrowing neural foraminal stenosis posterior vertebral endplate bone spurring contribute to central canal stenosis Diffuse cervical kyphosis may be from the degenerative disc and joint disease MRI CT spine; impingement of the existing right C5 nerve root abnormal cord si gnal in the left at C3 consider post contrast images for further evaluation Hospital course: --Acute on chronic CVA with Lt sided weakness; Not a candidate for TPA, aspirin, Plavix and statin Neuro workup MRI/MRA negative for acute abnormality, no acute CVA Large old infarct noted , neurology following, speech therapy PT OT rehabilitation Workup so far ; CT head without contrast; no acute intracranial abnormality, large colonic MCA infarct with right-sided MRI brain; right-sided infarct involving most of the right frontal lobe right anterior temporal lobe and right basal ganglia and right anterior parietal lobe, no acute infarct MRA brain; intracranial arterial vasculature, appears patent Carotid Doppler; Echocardiogram; CT cervical spine; no acute skeletal pathology in the cervical spine Multilevel degenerative changes disc narrowing neural foraminal stenosis posterior vertebral endplate bone spurring contribute to central canal stenosis Diffuse cervical kyphosis may be from the degenerative disc and joint disease MRI CT spine; impingement of the existing right C5 nerve root abnormal cord signal in the left at C3 consider post contrast images for further evaluation --Seizures attributed to h/o large CVA ; Patient claims competence with antiepileptics Seizure precautions and resume keppra, increase to 750 twice a day Ativan as needed --Degenerative cervical spine disease; probably chronic changes Supportive care, may need neurosurgical evaluation upon discharge --Dyslipidemia; statin Disposition: DC/[place]-06 HOME UNDER HOME [facility] Time spent for discharge: 32 min Core Measure Documentation - Palliative Care Palliative Care/ Comfort Measures: Not Applicable - Core Measures Any of the following diagnoses?: none Exam - Constitutional Vitals: Temp Pulse Resp BP Pulse Ox 98.1 F 63 19 102/71 95 02/12/19 12:12 02/12/19 12:12 02/12/19 12:12 02/12/19 12:12 02/12/19 12:12 General appearance: Present: no acute distress, well-nourished - EENT Eyes: Present: PERRL, EOM intact - Neck Neck: Present: supple, normal ROM - Respiratory Respiratory effort: normal Respiratory: bilateral: diminished, negative: rales, rhonchi, wheezing - Cardiovascular Rhythm: regular Heart Sounds: Present: S1 & S2 - Extremities Extremities: no ischemia, No edema - Abdominal General gastrointestinal: Present: soft, non-tender, non-distended, normal bowel sounds - Integumentary Integumentary: Present: clear, warm - Musculoskeletal Musculoskeletal: strength equal bilaterally - Psychiatric Psychiatric: appropriate mood/affect, cooperative - Neurologic Neurologic: CNII-XII intact, moves all extremities Plan Activity: fall precautions Diet: regular Special Instructions: physical therapy Additional Instructions: f/u private neurologist in 1 week. seizure precautions. Fall precautions Follow up with: BTEHANY MORTON MD [Primary Care Provider] - 3-5 Days VANDANA LIU MD [Staff Physician] - 7 Days Prescriptions: RX: levETIRAcetam [Keppra TAB] 500 mg PO BID@0800,2200 #60 tablet RX: AtorvaSTATin [Lipitor] 40 mg PO QHS #30 tablet
== END 2019-02-12 16:25 | disposition home health service (06) | DRG 101 ==
LOC: ED 08:28 → 3A 10:20
PROVIDERS: ADMIT Internal Medicine; ATTEND Internal Medicine
DX: G40.909 Epilepsy, unspecified, not intractable, without status epilepticus (principal); I69.354 Hemiplegia and hemiparesis following cerebral infarction affecting left non-dominant side; F17.210 Nicotine dependence, cigarettes, uncomplicated; J45.909 Unspecified asthma, uncomplicated; S00.83XA Contusion of other part of head, initial encounter; W18.39XA Other fall on same level, initial encounter; E78.5 Hyperlipidemia, unspecified; M48.8X2 Other specified spondylopathies, cervical region; G83.84 Todd's paralysis (postepileptic); I10 Essential (primary) hypertension; E11.9 Type 2 diabetes mellitus without complications; Z79.899 Other long term (current) drug therapy; Z82.49 Family history of ischemic heart disease and other diseases of the circulatory system; Z79.82 Long term (current) use of aspirin; Z79.84 Long term (current) use of oral hypoglycemic drugs; Z87.442 Personal history of urinary calculi; Y93.89 Activity, other specified; Y92.512 Supermarket, store or market as the place of occurrence of the external cause; Y99.8 Other external cause status
CPT/HCPCS: 36415; 70450; 70544; 70551; 71045; 72125; 72141; 80048; 80061; 80076; 80307; 80320; 81001; 82140; 82550; 82553; 83735; 83880; 84484; 85025; 85610; 85670; 85730; 87040; 87086; 93005; 93010; 99406; G0378; A9270-GY; G0480; J1650; J1953

== ENCOUNTER 2019-11-20 19:46 | Emergency (ER) | payer MEDICARE ==
[2019-11-20] MEDS ORDERED: SODIUM CHLORIDE 0.9% 1000 ML 1,000 ML IV ONE ×2 (21:24→22:28)
[2019-11-20 22:07] LABS: Basophils # (Auto) 0.1 K/mm3 (0.0-0.1); Basophils % (Auto) 0.6 % (0.0-1.8); Eosinophils # (Auto) 0.1 K/mm3 (0.0-0.4); Eosinophils % (Auto) 0.7 % (0.0-4.3); Hematocrit 45.9 % (35.5-45.6); Hemoglobin 15.5 gm/dl (11.8-15.2); Lymphocytes # (Auto) 2.3 K/mm3 (1.2-5.4); Lymphocytes % (Auto) 25.8 % (13.4-35.0); Mean Corpuscular HGB Conc 34 % (32-34); Mean Corpuscular Volume 92 fl (84-94); Monocytes # (Auto) 0.5 K/mm3 (0.0-0.8); Monocytes % (Auto) 5.1 % (0.0-7.3); Platelet Count 159 K/mm3 (140-440); Red Blood Count 4.99 M/mm3 (3.65-5.03); Red Cell Distribution Width 14.2 % (13.2-15.2)
[2019-11-20 22:24] LABS: BUN/Creatinine Ratio 20; Blood Urea Nitrogen 16 mg/dL (9-20); Calcium 9.6 mg/dL (8.4-10.2); Hemolysis Index 7
--- NOTE | 2019-11-20 22:36 | Emergency Department Report ---
ED General Adult HPI - General Chief complaint: Weakness Stated complaint: WEAKNESS Time Seen by Provider: 11/20/19 21:24 Source: patient, EMS Mode of arrival: Stretcher Limitations: Physical Limitation - History of Present Illness Initial comments: Patient is a 54-year-old F [place] male who is presenting with some dizziness especially when he stands. Patient states he felt lightheaded. Stated started earlier this morning. Patient has a history of stroke with weakness to his left upper extremity. Patient states his speech pattern and his level of weakness has not changed. Patient denies nausea vomiting diarrhea fevers chills cough cold or congestion. Severity scale (0 -10): 0 - Related Data Previous Rx's Medication Instructions Recorded Last Taken Type Aspirin [Aspirin BABY CHEW TAB] 81 mg PO QDAY #30 tab.chew 06/10/15 Unknown Rx DULoxetine [Cymbalta] 60 mg PO QDAY #30 capsule 06/10/15 Unknown Rx Metoprolol [Lopressor TAB] 25 mg PO BID@0800,2200 #60 tablet 06/10/15 Unknown Rx Nicotine [Habitrol] 14 mg TD QDAY #30 patch 06/10/15 Unknown Rx traZODone [Desyrel] 25 mg PO QHS PRN #30 tablet 06/10/15 Unknown Rx AtorvaSTATin [Lipitor] 40 mg PO QHS #30 tablet 02/12/19 Unknown Rx levETIRAcetam [Keppra TAB] 500 mg PO BID@0800,2200 #60 tablet 02/12/19 Unknown Rx Allergies Allergy/AdvReac Type Severity Reaction Status Date / Time No Known Allergies Allergy Verified 04/26/15 21:27 ED Review of Systems ROS: Stated complaint: WEAKNESS Other details as noted in HPI Comment: All other systems reviewed and negative ED Past Medical Hx - Past Medical History Hx Hypertension: Yes Hx CVA: Yes (residual left sided deficits) Hx Congestive Heart Failure: No Hx Diabetes: Yes Hx Deep Vein Thrombosis: No Hx Seizures: Yes Hx Kidney Stones: Yes Hx Asthma: Yes Hx COPD: No Hx Tuberculosis: No Hx HIV: No Additional medical history: right carotid artery stenosis (approx. 90% blockage per family) - Surgical History Hx Pacemaker: No Hx Internal Defibrillator: No - Social History Smoking Status: Current Every Day Smoker Substance Use Type: Alcohol - Medications Home Medications: Home Medications Medication Instructions Recorded Confirmed Last Taken Type Aspirin [Aspirin BABY CHEW TAB] 81 mg PO QDAY #30 tab.chew 06/10/15 02/09/19 Unknown Rx DULoxetine [Cymbalta] 60 mg PO QDAY #30 capsule 06/10/15 02/09/19 Unknown Rx Metoprolol [Lopressor TAB] 25 mg PO BID@0800,2200 #60 tablet 06/10/15 02/09/19 Unknown Rx Nicotine [Habitrol] 14 mg TD QDAY #30 patch 06/10/15 02/09/19 Unknown Rx traZODone [Desyrel] 25 mg PO QHS PRN #30 tablet 06/10/15 02/09/19 Unknown Rx AtorvaSTATin [Lipitor] 40 mg PO QHS #30 tablet 02/12/19 Unknown Rx levETIRAcetam [Keppra TAB] 500 mg PO BID@0800,2200 #60 tablet 02/12/19 Unknown Rx ED Physical Exam - General Limitations: Physical Limitation General appearance: alert, in no apparent distress - Head Head exam: Present: atraumatic, normocephalic - Eye Eye exam: Present: normal appearance, PERRL, EOMI - ENT ENT exam: Present: mucous membranes moist - Neck Neck exam: Present: normal inspection - Respiratory Respiratory exam: Present: normal lung sounds bilaterally. Absent: respiratory distress, wheezes, rales, rhonchi - Cardiovascular Cardiovascular Exam: Present: regular rate, normal rhythm, normal heart sounds. Absent: systolic murmur, diastolic murmur, rubs, gallop - GI/Abdominal GI/Abdominal exam: Present: soft, normal bowel sounds. Absent: distended, tenderness, guarding, rebound - Rectal Rectal exam: Present: deferred - Extremities Exam Extremities exam: Present: normal inspection - Back Exam Back exam: Present: normal inspection - Neurological Exam Neurological exam: Present: alert, oriented X3 - Psychiatric Psychiatric exam: Present: normal affect, normal mood - Skin Skin exam: Present: warm, dry, intact, normal color. Absent: rash ED Course Vital Signs 11/20/19 11/20/19 11/20/19 20:31 21:41 21:42 Temperature 98.2 F Pulse Rate 84 69 63 Respiratory 16 16 Rate Blood Pressure 107/61 114/75 [Left] O2 Sat by Pulse 97 98 Oximetry ED Medical Decision Making - Lab Data Result diagrams: 11/20/19 21:54 11/20/19 21:54 - Medical Decision Making Patient is heart rate did increase from the 60s to over 100 when he stands. Blood pressure was unaffected. Patient was given 2 L of normal saline. After the first liter patient states he was feeling much improved. Patient be discharged home. Patient encouraged to continue to orally hydrate. Critical care attestation.: If time is entered above; I have spent that time in minutes in the direct care of this critically ill patient, excluding procedure time. ED Disposition Clinical Impression: Orthostatic dizziness Disposition: DC-01 TO HOME OR SELFCARE Is pt being admited?: No Does the pt Need Aspirin: No Condition: Stable Instructions: Hypotension (ED), Dehydration (ED) Time of Disposition: 22:35
[2019-11-21 03:13] VITALS: BP 124/68
== END 2019-11-21 02:45 | disposition home or self-care (01) ==
LOC: ED 19:46
DX: R42 Dizziness and giddiness (principal); G40.909 Epilepsy, unspecified, not intractable, without status epilepticus; E11.9 Type 2 diabetes mellitus without complications; J45.909 Unspecified asthma, uncomplicated; F17.200 Nicotine dependence, unspecified, uncomplicated; Z79.899 Other long term (current) drug therapy; Z86.73 Personal history of transient ischemic attack (TIA), and cerebral infarction without residual deficits
CPT/HCPCS: 36415; 80048; 85025; 93005; 93010; 96360; 96361; 99284; J7030

== ENCOUNTER 2020-10-08 13:07 | Emergency (ER) | payer MEDICARE ==
[2020-10-08 13:31] VITALS: BP 110/72
--- NOTE | 2020-10-08 13:32 | Emergency Department Report ---
ED Fall HPI - General Stated Complaint: FALL; HEAD LACERATION Time Seen by Provider: 10/08/20 13:14 Source: patient, RN notes reviewed Limitations: No Limitations - History of Present Illness Initial Comments: This is a 55-year-old male nontoxic, well nourished in appearance, no acute signs of distress presents to the ED with c/o of left scalp laceration status post fall that occurred today. Patient that he has a left foot drop and tripped and landed onto his left scalp area. Patient denies any loss of conscious. Patient denies any chest pain, shortness of breath, fever, chills, nausea, vomiting, headache, stiff neck, back pain. MD Complaint: fall -: This morning Fall Witnessed: no Place Fall Occurred: home Loss of Consciousness: none Prolonged Down Time?: no Symptoms Prior to Fall: none Location: head Severity: mild Severity scale (0 -10): 3 Context: tripped/slipped Associated Symptoms: denies. denies: headache, neck pain, numbness, weakness, chest paint, shortness of breath, abdominal pain, hematuria, unable to walk, lightheaded, vertigo, confusion - Related Data Previous Rx's Medication Instructions Recorded Last Taken Type Aspirin [Aspirin BABY CHEW TAB] 81 mg PO QDAY #30 tab.chew 06/10/15 Unknown Rx DULoxetine [Cymbalta] 60 mg PO QDAY #30 capsule 06/10/15 Unknown Rx Metoprolol [Lopressor TAB] 25 mg PO BID@0800,2200 #60 tablet 06/10/15 Unknown Rx Nicotine [Habitrol] 14 mg TD QDAY #30 patch 06/10/15 Unknown Rx traZODone [Desyrel] 25 mg PO QHS PRN #30 tablet 06/10/15 Unknown Rx AtorvaSTATin [Lipitor] 40 mg PO QHS #30 tablet 02/12/19 Unknown Rx levETIRAcetam [Keppra TAB] 500 mg PO BID@0800,2200 #60 tablet 02/12/19 Unknown Rx Sulfamethoxazole/Trimethoprim 1 each PO BID #14 tablet 10/08/20 Unknown Rx [Bactrim DS TAB] Allergies Allergy/AdvReac Type Severity Reaction Status Date / Time No Known Allergies Allergy Verified 10/08/20 13:25 ED Review of Systems ROS: Stated complaint: FALL; HEAD LACERATION Other details as noted in HPI Comment: All other systems reviewed and negative Constitutional: denies: chills, fever Eyes: denies: eye pain, eye discharge, vision change ENT: denies: ear pain, throat pain Respiratory: denies: cough, shortness of breath, wheezing Cardiovascular: denies: chest pain, palpitations Endocrine: no symptoms reported Gastrointestinal: denies: abdominal pain, nausea, diarrhea Genitourinary: denies: urgency, dysuria Musculoskeletal: denies: back pain, joint swelling, arthralgia Skin: denies: rash, lesions Neurological: denies: headache, weakness, paresthesias Psychiatric: denies: anxiety, depression Hematological/Lymphatic: denies: easy bleeding, easy bruising ED Past Medical Hx - Past Medical History Hx Hypertension: Yes Hx CVA: Yes (residual left sided deficits) Hx Congestive Heart Failure: No Hx Diabetes: Yes Hx Deep Vein Thrombosis: No Hx Seizures: Yes Hx Kidney Stones: Yes Hx Asthma: Yes Hx COPD: No Hx Tuberculosis: No Hx HIV: No Additional medical history: right carotid artery stenosis (approx. 90% blockage per family) - Surgical History Hx Pacemaker: No Hx Internal Defibrillator: No - Social History Smoking Status: Current Every Day Smoker Substance Use Type: Alcohol - Medications Home Medications: Home Medications Medication Instructions Recorded Confirmed Last Taken Type Aspirin [Aspirin BABY CHEW TAB] 81 mg PO QDAY #30 tab.chew 06/10/15 02/09/19 Unknown Rx DULoxetine [Cymbalta] 60 mg PO QDAY #30 capsule 06/10/15 02/09/19 Unknown Rx Metoprolol [Lopressor TAB] 25 mg PO BID@0800,2200 #60 tablet 06/10/15 02/09/19 Unknown Rx Nicotine [Habitrol] 14 mg TD QDAY #30 patch 06/10/15 02/09/19 Unknown Rx traZODone [Desyrel] 25 mg PO QHS PRN #30 tablet 06/10/15 02/09/19 Unknown Rx AtorvaSTATin [Lipitor] 40 mg PO QHS #30 tablet 02/12/19 Unknown Rx levETIRAcetam [Keppra TAB] 500 mg PO BID@0800,2200 #60 tablet 02/12/19 Unknown Rx Sulfamethoxazole/Trimethoprim 1 each PO BID #14 tablet 10/08/20 Unknown Rx [Bactrim DS TAB] ED Physical Exam - General General appearance: alert, in no apparent distress - Head Head exam: Present: normocephalic - Expanded Head Exam Expanded Head exam: Present: laceration 1 - 3 cm laceration - Eye Eye exam: Present: normal appearance, PERRL, EOMI - Neck Neck exam: Present: normal inspection, full ROM. Absent: tenderness, meningismus, lymphadenopathy - Respiratory Respiratory exam: Absent: respiratory distress - Cardiovascular Cardiovascular Exam: Present: regular rate - Extremities Exam Extremities exam: Present: normal inspection, full ROM. Absent: tenderness - Back Exam Back exam: Present: normal inspection, full ROM. Absent: tenderness, CVA tenderness (R), CVA tenderness (L), muscle spasm, paraspinal tenderness, verte bral tenderness, rash noted - Neurological Exam Neurological exam: Present: alert, oriented X3 - Psychiatric Psychiatric exam: Present: normal affect, normal mood - Skin Skin exam: Present: warm, dry, intact, normal color. Absent: rash ED Course Vital Signs 10/08/20 13:30 Temperature 97.5 F L Pulse Rate 63 Respiratory 18 Rate Blood Pressure 110/72 O2 Sat by Pulse 99 Oximetry Vital Signs 10/08/20 13:30 Temperature 97.5 F L Pulse Rate 63 Respiratory 18 Rate Blood Pressure 110/72 O2 Sat by Pulse 99 Oximetry - Reevaluation(s) Reevaluation #1: 10/08/20 13:31 Patient is speaking in full sentences with no signs of distress noted. - Laceration /Wound Repair Left Face Wound Location: head (Left lateral scalp) Wound Length (cm): 4 Wound's Depth, Shape: flap Wound Explored: clean Irrigated w/ Saline (ccs): 40 Betadine Prep?: Yes Volume Anesthetic (ccs): 4 (2% lidocaine plain) Wound Repaired With: sutures Suture Size/Type: 5:0, proline Number of Sutures: 9 Layer Closure?: Yes Deep Layer Suture Size/Type: 3:0 (Vicryl) Number Deep Layer Sutures: 3 Sterile Dressing Applied?: Yes Progress: Under sterile field, I used Betadine to clean the area. I then used 40 mL of normal saline to flush the area. I then used 2% lidocaine plain and injected 4 mL to the wound. I then used 3-0 Vicryl for deeper dermis with total of 3 stitches placed. I then used a 5-0 Prolene to suture the laceration. Number of stitches 9. I then applied a sterile 4 x 4 with tape. Minimal bleeding noted but is under control. Patient tolerated procedure well with no signs of distress. ED Medical Decision Making - Radiology Data CT of cervical spine and head dictated by radiologist with no acute findings. - Medical Decision Making This is a 54-year-old male that presents with laceration. Patient is stable and was examined by me. Patient is notified of the CT results with no questions noted by the patient. The laceration suturing has been performed and has been performed and patient tolerated well. A sterile dressing has been applied. Patient was educated on proper wound care. Patient is discharged with Bactrim. Patient was instructed to return in 10 days for suture removal. Patient was instructed to refer to Follow-up with a primary care doctor in 3-5 days or if symptoms worsen and continue return to emergency room as soon as possible. At time of discharge, the patient does not seem toxic or ill in appearance. No acute signs of distress noted. Patient agrees to discharge treatment plan of care. No further questions noted by the patient. Critical care attestation.: If time is entered above; I have spent that time in minutes in the direct care of this critically ill patient, excluding procedure time. ED Disposition Clinical Impression: Fall Qualifiers: Encounter type: initial encounter Qualified Code(s): W19.XXXA - Unspecified fall, initial encounter Scalp laceration Qualifiers: Encounter type: initial encounter Qualified Code(s): S01.01XA - Laceration without foreign body of scalp, initial encounter Disposition: DC-01 TO HOME OR SELFCARE Is pt being admited?: No Does the pt Need Aspirin: No Condition: Stable Instructions: Laceration Care, Adult, Laceration Care, Adult, [id number] Additional Instructions: Follow-up with a primary care doctor in 3-5 days or if symptoms worsen and continue return to emergency room as soon as possible. Return in 10 days for suture removal. Prescriptions: Sulfamethoxazole/Trimethoprim [Bactrim DS TAB] 1 each PO BID #14 tablet Referrals: JINA NOGUERA [Other] - 3-5 Days PRIMARY CARE, [Referring] - 3-5 Days KIM ZAVALA MD [Staff Physician] - 3-5 Days Time of Disposition: 15:19
--- NOTE | 2020-10-08 14:14 | Cat Scan Report ---
CT HEAD WITHOUT CONTRAST INDICATION / CLINICAL INFORMATION: Patient fell sustaining head injury with scalp laceration. TECHNIQUE: All CT scans at this location are performed using CT dose reduction for ALARA by means of automated e xposure control. COMPARISON: MRI brain 02/09/2019 FINDINGS: HEMORRHAGE: No evidence of intracranial hemorrhage or extra-axial fluid collection. EXTRA-AXIAL SPACES: Ex vacuo dilatation of cortical sulci is observed along the lateral convexity of the right frontal lobe. VENTRICULAR SYSTEM: Ex vacuo dilatation of the frontal horn and anterior body of the right lateral ve ntricle is noted. CEREBRAL PARENCHYMA: A large area of decreased brain parenchymal attenuation is noted secondary to br ain injury involving much of the right frontal lobe as well as portions of the right temporal opercul um and right parietal lobe. There is involvement of the gangliocapsular structures but sparing of the right thalamus. This likely reflects the sequelae of remote infarction. Similar findings were presen t on previous study. MIDLINE SHIFT OR HERNIATION: There is no mass effect. CEREBELLUM / BRAINSTEM: There is atrophy of the right cerebral peduncle secondary to Wallerian degene ration. Brain stem has an otherwise unremarkable appearance. Moderate cerebellar atrophy is noted on the left. 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 MIDLINE STRUCTURES:No abnormalities of the pituitary gland or pineal region are identified. INTRACRANIAL VESSELS:No abnormalities are identified on this noncontrast head CT. ORBITS: visualized portions of the orbits have an unremarkable appearance. SOFT TISSUES of HEAD: There is a scalp laceration along the lateral aspect of the left forehead. CALVARIUM: Evaluation of bone windows reveals no abnormalities. PARANASAL SINUSES / MASTOID AIR CELLS: Visualized portions of the paranasal sinuses are free from inf lammatory mucosal disease. Mastoid air cells are normally pneumatized. IMPRESSION: 1. 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 Findings are stable since 02/06/2018. 2. No acute intracranial abnormality. Signer Name: Cy Castellon MD Signed: 10/08/2020 2:10 PM Workstation Name: [id number]
--- NOTE | 2020-10-08 14:35 | Cat Scan Report ---
Exam: CT cervical spine History: fall with lac; Technique: Contiguous thin cut axial images obtained through the cervical spine. Sagittal and mccallum l reconstructions performed by the technologist. All CT scans at this location are performed using CT dose reduction for ALARA by means of automated exposure control. Findings: Compared to the previous CT scan of the cervical spine from 02/09/2019 There is no evidence of fracture or traumatic subluxation. Vertebral bodies are normal in height and alignment. Intervertebral disc spaces: Degenerative disc disease with loss of disc height at C3-C4, C4-C5, C5-C6 and C6-C7 disc levels C3-C4: Disc osteophyte complex extending bilaterally; neuroforamina are normal C4-C5: Disc osteophyte complex more towards the right side; right neuroforamen is narrowed C5-C6 disc level: Normal neuroforamina C6-C7: Normal neuroforamina Cervical ribs any: More prominent on the right Surrounding soft tissues are grossly normal. Impression: No signs of acute bony trauma to the cervical spine. Signer Name: José Kaur MD Signed: 10/08/2020 2:30 PM Workstation Name: [id number]
== END 2020-10-08 15:42 | disposition home or self-care (01) ==
LOC: ED 13:07
DX: S01.01XA Laceration without foreign body of scalp, initial encounter (principal); F17.200 Nicotine dependence, unspecified, uncomplicated; I10 Essential (primary) hypertension; E11.9 Type 2 diabetes mellitus without complications; J45.909 Unspecified asthma, uncomplicated; Z86.69 Personal history of other diseases of the nervous system and sense organs; Z79.899 Other long term (current) drug therapy; Z87.442 Personal history of urinary calculi; Z86.73 Personal history of transient ischemic attack (TIA), and cerebral infarction without residual deficits; W18.30XA Fall on same level, unspecified, initial encounter; Y93.89 Activity, other specified; Y92.89 Other specified places as the place of occurrence of the external cause; Y99.8 Other external cause status
CPT/HCPCS: 70450; 72125